=== PATIENT | male | born 1955 | race Caucasian/White ===

== ENCOUNTER 2019-06-07 13:39 | Inpatient (IN) | payer BC, SELFPAY ==
[2019-06-07] VITALS (14 sets, daily range): BP systolic 134–187; BP diastolic 79–120; PULSE 62–78; RESP 15–97; TEMP 36.4–36.8; O2SAT 96–99; BMI 27.3
--- NOTE | 2019-06-07 13:43 | ECG_ITS ---
Measurements Intervals [place] Rate: 66 P: 54 OK: 172 QRS: 0 QRSD: 92 T: 20 QT: 385 QTc: 405 Interpretive Statements SINUS RHYTHM RSR' IN V1 OR V2, CONSIDER RIGHT VENTRICULAR HYPERTROPHY OR RIGHT VCD ANTEROLATERAL ST ELEVATION- PROBABLY EARLY REPOLARIZATION INFERIOR ST ELEVATION MYOCARDIAL INFARCT- ACUTE ABNORMAL ECG Electronically Signed On 06-07-2019 14:30:21 CDT by Duarte Jones D.O.
--- NOTE | 2019-06-07 13:56 | PC.NURSE ---
Stemi called vrbo to give pt 243 of aspirin
[2019-06-07 14:00] LABS: Basophils Absolute Auto 0.1 K/mm3 (0.0-0.1); Basophils Percent Auto 0.2 % (0.2-1.2); Eosinophils Absolute Auto 0.2 K/mm3 (0-0.3); Eosinophils Percent Auto 0.7 % (0-4.4); Hematocrit 45.9 % (42.0-52.0); Hemoglobin 15.5 g/dL (14.0-18.0); Immature Granulocyte Absolute 0.05 K/mm3 (0.00-0.031); Immature Granulocyte Percent A 0.2 % (0-0.5); Lymphocytes Absolute Auto 25.22 K/mm3 (0.9-3.2); Lymphocytes Percent Auto 77.8 % (18.3-44.2); Mean Corpuscular HGB Conc 33.8 g/dl (32-36); Mean Corpuscular Volume 88.8 fl (80-100); Mean Platelet Volume 9.4 fl (7.4-10.4); Monocytes Absolute Auto 0.7 K/mm3 (0.1-0.6); Monocytes Percent Auto 2.3 % (2.6-8.5); Neutrophils Absolute Auto 6.1 K/mm3 (1.3-6.7); Neutrophils Percent Auto 18.8 % (45.5-73.1); Platelet Count Result 217 k/mm3 (150-375); Red Blood Count 5.17 M/mm3 (4.6-6.20); Red Cell Distribution Width 12.1 % (11.5-14.5); White Blood Count 32.4 K/mm3 (4.5-10.0)
--- NOTE | 2019-06-07 14:02 | PC.NURSE ---
rajat to give heparin 0.8 ml brillinta 180 mg
--- NOTE | 2019-06-07 14:04 | ED.CHESTPAIN ---
HPI - Chest Pain General Chief Complaint: Chest Pain Stated Complaint: chest tightness x4d Time Seen by Provider: 06/07/19 13:42 History of Present Illness HPI narrative: Patient is a 63-year-old male who presents the ER with chest pain. Began 4 days ago while out on a walk. Pain has waxed and waned in intensity since then. At the worst is 4/10 and is currently 2/10. No modifying factors. Feels like symptoms are worse at night. Symptoms start left shoulder blade and move into the central chest. No diaphoresis/shortness of breath. Patient also denies any sort of infectious symptoms such as runny nose/sore throat/productive cough/fever. Related Data Home Medications Medication Instructions Recorded Confirmed amlodipine 06/07/19 aspirin 81 mg PO DAILY 06/07/19 06/07/19 fluocinonide TOPICAL 06/07/19 metoprolol tartrate 06/07/19 Allergies Allergy/AdvReac Type Severity Reaction Status Date / Time No Known Allergies Allergy Verified 06/07/19 13:50 Review of Systems Review of Systems: All systems reviewed & are unremarkable except as noted in HPI and below Constitutional: Constitutional: Denies chills, Denies fever(s) and Denies weakness Cardiovascular: Cardiovascular: Reports chest pain, Denies rapid heart rate and Denies radiating jaw, neck or arm pain Respiratory: Respiratory: Denies cough, Denies dyspnea and Denies wheezing Gastrointestinal: Gastrointestinal: Denies abdominal pain, Denies nausea and Denies vomiting PMFSH Past Medical History Medical History Carotid arterial disease Hypercholesterolemia Hypertension Surgical History Surgical History H/O carotid endarterectomy H/O carotid endarterectomy Family History Family History Unknown No problems noted. Social History Social History Social History: Non-smoker Smoking status: Never smoker Alcohol intake: current Drinks per week: 24 Substance use: never Gender identity (if verbalized by the patient): Male Spiritual care concerns: No Agree to blood products: Yes Exam Narrative: Exam Narrative: GENERAL: Well-appearing, well-nourished, and in no acute distress. HEAD: Normocephalic, atraumatic. EYES: PERRL and EOMI. ENT: Mucous membranes moist. CHEST: Clear to auscultation. No respiratory distress. HEART: Regular rate and rhythm. No murmur heard. Normal peripheral pulses. ABDOMEN: Soft, nontender, nondistended. EXTREMITIES: Normal range of motion. No edema. SKIN: Warm, dry, no rash. NEURO: Alert and oriented x3. Course Course Emergency Course: STEMI activated, spoke with Dr. Davis. Pt will get ASA, brilinta, and heparin. Off to farm labor contractor. Vital Signs Vital signs: Vital Signs Temperature 97.6 F 06/07/19 13:43 Pulse Rate 70 06/07/19 13:43 Respiratory Rate 18 06/07/19 13:43 Blood Pressure 172/106 H 06/07/19 13:43 Pulse Oximetry 99 06/07/19 13:43 Temperature 97.6 F 06/07/19 13:43 Pulse Rate 74 06/07/19 14:00 Respiratory Rate 18 06/07/19 14:00 Blood Pressure 168/109 H 06/07/19 14:11 Pulse Oximetry 99 06/07/19 13:43 MDM - Chest Pain Lab Data Result diagrams: 06/07/19 13:53 06/07/19 13:53 Labs: Lab Results 06/07/19 06/07/19 06/07/19 Range/Units 13:53 13:53 13:53 WBC 32.4 H (4.5-10.0) K/mm3 RBC 5.17 (4.6-6.20) M/mm3 Hgb 15.5 (14.0-18.0) g/dL Hct 45.9 (42.0-52.0) % MCV 88.8 (80-100) fl MCH 30.0 (26-34) pg MCHC 33.8 (32-36) g/dl RDW 12.1 (11.5-14.5) % Plt Count 217 (150-375) k/mm3 MPV 9.4 (7.4-10.4) fl Immature Gran % (Auto) 0.2 (0-0.5) % Neut % (Auto) 18.8 L (45.5-73.1) % Lymph % (Auto) 77.8 H (18.3-44.2) % [place] % (Auto) 2.3 L (2.6-8.5) % Eos
[2019-06-07] MEDS: ASPIRIN 81 MG CHEWABLE TABLET 324 MG PO (14:09)
[2019-06-07] MEDS: TICAGRELOR 90 MG TABLET 180 MG (14:09)
[2019-06-07 14:12] LABS: Blood Urea Nitrogen 16 mg/dL (9-20); Carbon Dioxide 27 mmol/L (22-30); Chloride 103 mmol/L (98-107); Estimated CRCL calculation 84 ml/min; Estimated Glomerular Filt Rate > 60; Glucose 114 mg/dL (75-110); Potassium 4.1 mmol/L (3.4-5.0); Sodium 138 mmol/L (137-145)
[2019-06-07 14:13] LABS: Platelet Estimate Adequate (Adequate)
[2019-06-07 14:14] LABS: Atypical Lymphocytes Present; INR 0.9; Prothrombin Time 12.1 Seconds (11.1-14.7); Smudge Cells PRESENT
[2019-06-07 14:15] LABS: Partial Thromboplastin Time 24.4 SECONDS (22.3-36.8)
--- NOTE | 2019-06-07 14:20 | PM.IMHP ---
H&P: HPI History of Present Illness Chief complaint: stemi Narrative: Date of service: 06/07/2019 Bipin Artis is a 63 year old male with a past medical history significant for hypertension, dyslipidemia, carotid arterial disease status post right carotid endarterectomy 2015, prior TIA followed by Dr. Cunningham at [facility] who states he was in his usual state of health when approximately 3 days ago he began to experience left upper discomfort described as a pressure /aching sensation radiating to his chest. Symptoms were worsened with activity and rather uncomfortable. They have been waxing and waning in intensity but more less constant the past few days and given persistence and his history of carotid arterial disease he became concerned and presented to the emergency department. In the ER it was noted he had ST elevations in lead I, II, III, aVF concerning for STEMI for which the ER activated the STEMI team and notified Dr. Davis who agreed to take the patient to the general production laborer. He denies diaphoresis, significant SOB although possibly slight, no nausea, fevers, chills, cough or recent illness or sick contacts. He notes he does not feel all that bad currently but admits to the persistence of chest and back discomfort. No prior h/o CAD/NM, CHF, DVT/PE, or bleeding complications. No edema, orthopnea, PND, palpitations, near syncope/syncope, FORDE, focal weakness, trauma or falls. he has been compliant with ASA but is not on a statin. Dr. Davis has been contacted and the pt will be taken to the cardiac general production laborer on an emergent basis. Incidentally, WBC markedly elevated with lymphocytic predominance. Review of Systems Review of Systems: All systems reviewed & are unremarkable except as noted in HPI and below Constitutional: Constitutional: Reports as per HPI, Reports no additional constitutional complaints, Denies body ache(s), Denies chills, Reports difficulty sleeping and Reports fatigue Eyes: Eyes: Reports as per HPI and Reports no additional eye complaints ENT: Reports system reviewed and no additional complaints, except as documented, Reports as per HPI, Denies dysphagia, Denies epistaxis, Denies nasal congestion and Denies nasal discharge Cardiovascular: Cardiovascular: Reports as per HPI, Reports no additional cardiovascular complaints, Reports chest pain, Denies diaphoresis, Denies leg edema, Denies lightheadedness and Denies palpitations Respiratory: Respiratory: Reports as per HPI, Reports no additional respiratory complaints, Denies cough, Denies hemoptysis and Reports dyspnea Gastrointestinal: Gastrointestinal: Reports as per HPI, Reports no additional gastrointestinal complaints, Denies abdominal pain, Denies melena, Denies hematochezia, Denies nausea, Denies vomiting and Denies hematemesis Genitourinary: Genitourinary: Reports no additional male genitourinary complaints, Reports as per HPI, Denies hematuria and Denies dysuria Musculoskeletal: Musculoskeletal: Reports no additional musculoskeletal complaints, Reports as per HPI, Reports back pain, Denies myalgias, Denies arthralgias and Denies neck pain Integumentary/Breasts: Skin/Breast: Reports system reviewed and no additional complaints, except as docu, Reports as per HPI and Denies rash Neurologic: Reports system reviewed and no additional complaints, except as documented, Reports as per HPI, Denies Abnormal speech present, Denies abnormal gait, Denies confusion and Denies headache(s) Psychiatric: Psychiatric: Reports no additional psychiatric complaints, Reports as per HPI, Denies anxiety, Denies behavioral changes and Denies confusion Endocrine: Endocrine: Reports no additional endocrine complaints, Reports as per HPI, Denies cold intolerance, Denies excessive sweating, Reports fatigue and Denies heat intolerance Hematologic/Lymphatic: Hematologic/Lymphatic: Reports no additional hematologic/lymphatic complaints, Reports as per HPI, Denies easy bleeding and Denies easy bruising Allergic/Immun
--- NOTE | 2019-06-07 15:15 | WPDCARDPROC ---
Cardiac Cath Procedure Note Date of procedure:: 06/07/19 Performing physician:: Nathanael Davis MD Indication:: acute coronary syndrome -inferior ST-elevation AR Procedure Procedure note:: EMERGENT CARDIAC CATHETERIZATION AND PERCUTANEOUS CORONARY INTERVENTION REPORT DATE OF PROCEDURE: 06/07/2019 INDICATION FOR PROCEDURE: Acute coronary syndrome -inferior ST-elevation myocardial infarction BRIEF CLINICAL HISTORY: 63-year-old male with past medical history of hypertension came to [facility] emergency room with complaints of chest discomfort for about 4 days. His EKG in the ER showed sinus rhythm, ST segment elevation in the inferior leads with subtle ST depression in the septal leads. Cardiac catheterization lab was activated for primary PCI. PROCEDURES PERFORMED: 1. Left heart catheterization- Selective left and right coronary angiogram; left ventriculogram and hemodynamic assessment 2. Percutaneous coronary intervention- Balloon angioplasty and stenting of subtotal occlusion in the proximal RCA using a 3.5 x 13 mm Biotronik sirolimus eluting stent with good angiographic results. 3. Selective right common femoral angiogram and deployment of Angio-Seal hemostatic device 4. Moderate sedation-CPT code 77782 MODERATE SEDATION: Midazolam 1 mg; fentanyl 25 mcg. Start time 1447 , Stop time 1503 ; Total [id number] time 16; RN was trained observer for moderate sedation. ACCESS SITE: Right common femoral artery PROCEDURE NOTE: After obtaining informed consent, patient was Emergently brought to catheterization lab and prepped and draped in a usual sterile manner. After local anesthesia with lidocaine, right common femoral artery access was taken with micropuncture needle followed by insertion of a 6 Malaysian sheath. Selective left and right coronary angiogram was performed using 5 Malaysian JL4 and 6 Malaysian JR4 guide catheters respectively. Orthogonal views were taken. after completion of primary PCI, 5 Malaysian pigtail catheter was advanced in the LV cavity and was flushed with normal saline. LV pressure measurement was performed. After this, left ventriculogram was performed. The catheter was flushed again, and gradient across the aortic valve was measured on the pullback of the catheter. Selective right common femoral angiogram was performed after PCI followed by successful deployment of Angio-Seal vascular closure device. Patient tolerated procedure well without any immediate procedure related complications. FINDINGS: LEFT MAIN CORONARY: the left main coronary artery is a medium-sized, very short vessel without angiographically significant focal stenosis. LEFT ANTERIOR DESCENDING ARTERY: The LAD is a medium-size vessel, tapers distally And reaches the apical apex. There is diffuse 30-40% stenosis in the proximal-mid segment. Major diagonal branch is a small to medium-sized vessel With mild diffuse disease. LEFT CIRCUMFLEX ARTERY: The left circumflex artery is a large size vessel, gives multiple tortuous OM branches with significant overlap. No significant focal stenosis seen. RIGHT CORONARY ARTERY: The RCA is a medium to large size , codominant Vessel. there is high-grade, subtotal 99% stenosis in the proximal segment. PDA is a small to medium caliber vessel, and PL branch is a small-caliber vessel. LEFT VENTRICULOGRAM: Overall LV systolic function is preserved with mild inferior wall hypokinesis; ejection fraction 60-65%. LVEDP 18 mmHg. HEMODYNAMIC ASSESSMENT: Opening pressure 125/81 , closing pressure 144/76 mmHg , LVEDP mmHg; no significant gradient across aortic valve on the pullback of pigtail catheter. RIGHT COMMON FEMORAL ARTERY: Patent INTERVENTION REPORT: Patient's coronary angiogram showed subtotal 99% stenosis in the proximal [id number] vessel. He had already received aspirin and loading dose of ticagrelor 180 mg in the emergency room. Bivalirudin was used for procedural anticoagul
--- NOTE | 2019-06-07 16:50 | ADMGEN ---
This patient, Bipin Artis, was admitted to Intensive Care Unit-6. Patient/family oriented to hospital policies and general routines including ID bracelet, bed and alarms, visiting hours, pain management, procedures, bathroom and other care routines, personal items, smoking policy, room service/diet, and visiting hours. Valuables list has been completed. Information on how to activate the Rapid Response Team has been discussed. Patient/Family are encouraged to report perceived risks to care and to ask questions if they do not understand what they are told or what they should do.
[2019-06-07] MEDS: SODIUM CHLORIDE 0.9% IV 1,000 ML 125 ML IV CONT (16:54)
[2019-06-07] MEDS: TICAGRELOR 90 MG TABLET PO (20:56)
[2019-06-07] MEDS: METOPROLOL TARTRATE 12.5 MG TABLET PO (20:56)
[2019-06-08] VITALS (19 sets, daily range): BP systolic 124–149; BP diastolic 80–94; PULSE 60–85; RESP 12–18; TEMP 36.3–37; O2SAT 97–100
[2019-06-08 08:03] LABS: Hematocrit 44.7 % (42.0-52.0); Hemoglobin 14.5 g/dL (14.0-18.0); Mean Corpuscular HGB Conc 32.4 g/dl (32-36); Mean Corpuscular Hemoglobin 29.8 pg (26-34); Mean Corpuscular Volume 91.8 fl (80-100); Mean Platelet Volume 9.7 fl (7.4-10.4); Platelet Count Result 183 k/mm3 (150-375); Red Blood Count 4.87 M/mm3 (4.6-6.20); Red Cell Distribution Width 12.5 % (11.5-14.5); White Blood Count 26.3 K/mm3 (4.5-10.0)
[2019-06-08] MEDS: METOPROLOL TARTRATE 12.5 MG TABLET PO ×2 (08:04→20:34)
[2019-06-08] MEDS: TICAGRELOR 90 MG TABLET PO ×2 (08:04→20:35)
[2019-06-08] MEDS: lisinopriL 5 MG TABLET PO (08:04)
[2019-06-08] MEDS: ASPIRIN 81 MG ENTERIC TABLET PO (08:05)
[2019-06-08] MEDS: ATORVASTATIN 40 MG TABLET 80 MG PO (08:05)
[2019-06-08 08:08] LABS: Lymphocytes Absolute Manual 21.56 K/mm3 (1.1-4.5); Monocytes Absolute Manual 0.52 K/mm3 (0.1-0.90); Monocytes Percent Manual 2 % (3-9); Neutrophils Percent Manual 16 % (46-73); Platelet Estimate Adequate (Adequate); Total Cells Counted 100
[2019-06-08 08:09] LABS: Atypical Lymphocytes Present
[2019-06-08 08:10] LABS: Smudge Cells FEW
[2019-06-08 08:15] LABS: Blood Urea Nitrogen 14 mg/dL (9-20); Calcium 8.8 mg/dL (8.4-10.2); Carbon Dioxide 28 mmol/L (22-30); Chloride 105 mmol/L (98-107); Estimated CRCL calculation 84 ml/min; Estimated Glomerular Filt Rate > 60; Glucose 115 mg/dL (75-110); Magnesium 2.3 mg/dL (1.6-2.3); Phosphorus 3.4 mg/dL (2.5-4.5); Potassium 4.4 mmol/L (3.4-5.0); Sodium 138 mmol/L (137-145)
--- NOTE | 2019-06-08 11:05 | WPDCNINT ---
Assessment and Plan Assessment and plan (1) STEMI (ST elevation myocardial infarction): Code(s): I21.3 - ST elevation (STEMI) myocardial infarction of unspecified site Status: Acute Assessment and Plan: patient presented with chest pain, EKG in the ED showed acute inferior myocardial injury. Patient status post PTCA / PCI with TIM x1 to proximal RCA. EF 60-65% with mild inferior wall hypokinesia - cardiology following the patient closely - continue aspirin, Brilinta, atorvastatin, metoprolol, lisinopril (2) Chronic leukemia: Code(s): C95.10 - Chronic leukemia of unspecified cell type not having achieved remission Status: Acute Assessment and Plan: patient has a history of chronic leukemia - WBC count on admission was 34,000, this morning is 26,000. (3) Hypertension: Code(s): I10 - Essential (primary) hypertension Status: Acute Assessment and Plan: history of essential hypertension on lisinopril and metoprolol (4) Dyslipidemia: Code(s): E78.5 - Hyperlipidemia, unspecified Status: Acute Assessment and Plan: continue atorvastatin (5) H/O carotid endarterectomy: Code(s): Z98.890 - Other specified postprocedural states Status: Acute Assessment and Plan: h/o R CEA per patient, followed by Dr. Cunningham at [facility]. Pt reports h/o TIA prior to CEA in 2014 prompting referral and diagnosis. (6) Suspected 2019 novel coronavirus infection: Code(s): R68.89 - Other general symptoms and signs Status: Acute Assessment and Plan: given patient's white blood cell count was elevated in the ED patient was swabbed for SARS-COV-2 PCR, which is pending. Additional Plan Discussed with patient updated with his condition and plan of care. I answered his questions code status: Full code Critical care time spent: 41 minutes Due to a high probability of clinically significant, life threatening deterioration, the patient required my highest level of preparedness to intervene emergently and I personally spent this critical care time directly and personally managing the patient. This critical care time included obtaining a history; examining the patient; pulse oximetry; ordering and review of studies; arranging urgent treatment with development of a management plan; evaluation of patient's response to treatment; frequent reassessment; and discussions with other providers. It was exclusive of separately billable procedures and treating other patients and teaching time. Please see Assessment and Plan section and the rest of the note for further information on patient assessment and treatment Foundry Engineer Consult Note Consult date: 06/08/19 Time Seen: 06:58 Reason for consult: STEMI, status post PTCA/PCI with TIM x1 to proximal RCA. HPI: Bipin Artis is a 63 year old male With significant past medical history of chronic leukemia, carotid artery disease, hypercholesterolemia, hypertension presented to the ED with complains of chest pain that began on 06/03/2019 while he was out walking. The pain has been intermittent, pressures/aching sensation. Symptoms worsen with activity pain initially had been waxing and waning but recently is more or less constant for the cup os couple of days, patient was concerned and presented to the ED we was found to have ST elevations in leads I, II,II AVF. Patient denies any diaphoresis, shortness of breath, lightheadedness, nausea, fevers, chills, cough. No exposure to recent illness or sick contacts. No no EF was 60-65% with LVEDP of 18 mmHg. recent travel was noted. Patient was taken to the cardiac labor contract analyst for acute inferior myocardial injury status post PTCA/PCI with TIM x1 to proximal RCA. LV gram with mild inferior wall hypokinesis. [place] [id number] on admission, he was swabbed for SARS-COV-2 PCR for COVID-19. Patient was transferred to the ICU post procedure fo
[2019-06-08 11:49] LABS: SARS-CoV-2 RNA PCR Negative
--- NOTE | 2019-06-08 13:06 | PM.PNCARD ---
Progress Note: A&P Assessment and Plan (1) STEMI (ST elevation myocardial infarction): Code(s): I21.3 - ST elevation (STEMI) myocardial infarction of unspecified site Status: Acute Assessment and Plan: Subtotal proximal RCA occlusion status post 3.5 x 13 mm Biotronik sirolimus eluting stent without complications. Residual diffuse 30-40% stenosis in proximal to mid segment of LAD mild diffuse disease in diagonal branch. Circumflex large vessel without significant stenosis. EF 60-65% with mild inferior hypokinesis. - 2D Echocardiogram - Doing well post intervention. Continue dual antiplatelet therapy with aspirin 81mg daily and ticagrelor 90mg BID x 12 months without interruption, high dose statin, beta-mely, and lisinopril. Blood pressure reasonably controlled. - COVID-19 result negative. May discontinue isolation. - Transfer to [facility] today. - Spent a great deal of time discussing his significant increased risk for complications if he were to contract COVID-19 and the importance of following CDC guidelines and taking every reasonable precaution. Specifically, advised patient alternative arrangements for watching their grandchildren as there [id number] works in a [employer] placing patient at high risk of infection. All questions answered to his satisfaction. - Spent a great deal time also discussing post myocardial infarction precautions with regards to right femoral arterial access and avoidance of anything more than low impact walking, any sexual activity, heavy lifting and or mowing the lawn for least 2 weeks. Post catheterization in vt precautions with regards to arterial access site discussed and will be once again reviewed prior to discharge. (2) Hypertension: Code(s): I10 - Essential (primary) hypertension Status: Acute Assessment and Plan: Fair BP control. Continue current medical therapy. (3) Dyslipidemia: Code(s): E78.5 - Hyperlipidemia, unspecified Status: Acute Assessment and Plan: Continue Atorvastatin 80 mg at bedtime. Check lipid panel (4) Carotid arterial disease: Code(s): I77.9 - Disorder of arteries and arterioles, unspecified Status: Acute Assessment and Plan: h/o R CEA per pt account followed by Dr. Cunningham at [facility]. Pt reports h/o TIA prior to CEA in 2014 prompting referral and diagnosis. (5) H/O carotid endarterectomy: Code(s): Z98.890 - Other specified postprocedural states Status: Acute Assessment and Plan: as above, R side 2014. (6) Leukocytosis: Code(s): D72.829 - Elevated white blood cell count, unspecified Status: Acute Assessment and Plan: Patient reports history of chronic leukemia who has regular follow up as an outpatient. Subjective Date/time seen: Date of service: 06/08/19 11:06 Follow-up for inferior ST-elevation myocardial infarction Patient feeling well. Denies chest pain or shortness of breath. Had 5 beat nonsustained VT overnight, otherwise no new issues. denies palpitations, bleeding. No significant right groin pain. Patient remains on isolation for COVID-19 rule out. COVID-19 returned negative. Denies fevers, chills, shortness of breath, cough. Review of Systems Review of Systems: All systems reviewed & are unremarkable except as noted in HPI and below Constitutional: Constitutional: Reports as per HPI, Reports no additional constitutional complaints, Denies body ache(s), Denies chills, Denies difficulty sleeping, Denies excessive sweating, Denies fatigue, Denies headache(s) and Denies weakness Eyes: Eyes: Reports as per HPI and Reports no additional eye complaints ENT: Reports system reviewed and no additional complaints, except as documented, Reports as per HPI, Denies dysphagia, Denies headache(s), Denies epistaxis, Denies nasal congestion, Denies nasal discharge and Denies neck pain Cardiovascular: Cardiovascular: Reports as p
--- NOTE | 2019-06-08 13:17 | ECHO_ITS ---
Patient Info Name: Bipin Artis Age: 63 years : 1955 Gender: Male Ht: 73 in Wt: 203 lbs BSA: 2.19 m2 BP: 139 / 91 mmHg Heart Rhythm: Sinus Rhythm Technical Quality: Good Exam Date: 06/08/2019 1:52 PM Exam Location: [facility] Patient Status: Inpatient Admit Date: 06/07/2019 Staff Ordering Physician: Demetris Jerez MD Utilization Management Manager: Jose Dunaway, DUY, RT Attending Provider: Nathanael Davis MD Referring Physician: Meri WATSON; Exam Type: CA echo doppler color flow Study Info Indications I21.3 - ST elevation (STEMI) myocardial infarction of unspecified site Complete two-dimensional, color flow and Doppler transthoracic echocardiogram is performed with contrast to opacify the left ventrical and to improve the deliniation of the left ventrical endocarial boarders. Summary 1. Left ventricular systolic function is normal, estimated at 65-70%. 2. There is mildly increased left ventricular wall thickness. 3. The left ventricular diastolic function is grade II diastolic dysfunction. 4. Mild mid inferior wall hypokinesis. 5. There is no aortic valve stenosis. 6. Mild focal calcification of the noncoronary cusp. 7. There is trace mitral valve regurgitation. 8. There is trace tricuspid valve regurgitation. 9. Unable to estimate PA systolic pressure due to poor spectral resolution of tricuspid regurgitant jet velocity. Left Ventricle Left ventricular chamber dimension is normal. Left ventricular systolic function is normal, estimated at 65-70%. There is mildly increased left ventricular wall thickness. The left ventricular diastolic function is grade II diastolic dysfunction. Mild mid inferior wall hypokinesis. Right Ventricle Right ventricular chamber dimension is normal. Right ventricular systolic function is normal. Left Atria Left atrial chamber dimension is normal. Right Atria Right atrial chamber dimension is normal. Aortic Valve The aortic valve is trileaflet. There is no aortic valve stenosis. There is no aortic valve regurgitation. Mild focal calcification of the noncoronary cusp. Pulmonic Valve The pulmonic valve is not well visualized. There is mild pulmonic regurgitation. Mitral Valve The mitral valve has thickened leaflets. There is trace mitral valve regurgitation. Tricuspid Valve The tricuspid valve leaflets are normal. There is trace tricuspid valve regurgitation. Unable to estimate PA systolic pressure due to poor spectral resolution of tricuspid regurgitant jet velocity. Pericardium/Pleural The pericardium appears normal. There is no pericardial effusion. Inferior Vena Cava Normal inferior vena cava with >50% collapse upon inspiration consistent with normal right atrial pressure, 5 mmHg. Aorta The aortic root size at the sinus of Valsalva is normal. There is mild aortic atherosclerosis. Left Ventricular Outflow Tract Name Value Normal LVOT 2D LVOT Diameter 2.0 cm LVOT Doppler LVOT Peak Gradient 4 mmHg LVOT Mean Gradient 2 mmHg LVOT VTI 18 cm
[2019-06-08] MEDS: PERFLUTREN LIPID MICROSPHERES 1.5 ML VIAL DILUTED TO 10 ML TOTAL VOLUME IV PUSH (14:35)
--- NOTE | 2019-06-08 15:04 | PC.NURSE ---
This patient, Bipin Artis, was received from ICU-6 on 06/08/19 at 1504. Personal belongings list checked and signed. Patient/family oriented to unit policies and routines
[2019-06-09] VITALS (7 sets, daily range): BP systolic 125–131; BP diastolic 83–84; PULSE 57–94; RESP 14–18; TEMP 35.8–36.2; O2SAT 99
[2019-06-09 04:40] LABS: Cholesterol 180 mg/dL (0-200); HDL Direct 31 mg/dL; Triglycerides 129 mg/dL (<150)
[2019-06-09 04:50] LABS: LDL Cholesterol Direct 131 mg/dL
[2019-06-09] MEDS: METOPROLOL TARTRATE 12.5 MG TABLET PO (08:34)
[2019-06-09] MEDS: ATORVASTATIN 40 MG TABLET 80 MG PO (08:34)
[2019-06-09] MEDS: ASPIRIN 81 MG ENTERIC TABLET PO (08:34)
[2019-06-09] MEDS: TICAGRELOR 90 MG TABLET PO (08:34)
[2019-06-09] MEDS: lisinopriL 5 MG TABLET PO (08:34)
--- NOTE | 2019-06-09 09:59 | PM.DS ---
DS: Diagnosis Admitting Diagnosis Admitting Diagnosis: ST elevation (STEMI) myocardial infarction of unspecified site Discharge Diagnosis (1) STEMI (ST elevation myocardial infarction): Qualifiers: Involved coronary artery: right coronary artery Qualified Code(s): I21.11 - ST elevation (STEMI) myocardial infarction involving right coronary artery Code(s): I21.3 - ST elevation (STEMI) myocardial infarction of unspecified site Status: Acute Assessment and Plan: Subtotal proximal RCA occlusion status post 3.5 x 13 mm Biotronik sirolimus eluting stent without complications. Residual diffuse 30-40% stenosis in proximal to mid segment of LAD mild diffuse disease in diagonal branch. Circumflex large vessel without significant stenosis. EF 60-65% with mild inferior hypokinesis. Echo 06/08/2019: Left ventricular systolic function is normal, estimated at 65-70%. There is mildly increased left ventricular wall thickness. The left ventricular diastolic function is grade II diastolic dysfunction. Mild mid inferior wall hypokinesis. There is no aortic valve stenosis. Mild focal calcification of the noncoronary cusp. There is trace mitral valve regurgitation. There is trace tricuspid valve regurgitation. Unable to estimate PA systolic pressure due to poor spectral resolution of tricuspid regurgitant jet velocity. Continue dual antiplatelet therapy with aspirin 81mg daily and ticagrelor 90mg q.12 hours x 12 months without interruption, high dose statin, beta-mely, and lisinopril. Blood pressure reasonably controlled. COVID-19 result negative. (2) Hypertension: Qualifiers: Hypertension type: essential hypertension Qualified Code(s): I10 - Essential (primary) hypertension Code(s): I10 - Essential (primary) hypertension Status: Acute Assessment and Plan: Fair BP control. Continue current medical therapy. (3) Dyslipidemia: Code(s): E78.5 - Hyperlipidemia, unspecified Status: Acute Assessment and Plan: Continue Atorvastatin 80 mg at bedtime. Check lipid panel (4) Carotid arterial disease: Qualifiers: Carotid artery disease type: stenosis Laterality: right Qualified Code(s): I65.21 - Occlusion and stenosis of right carotid artery Code(s): I77.9 - Disorder of arteries and arterioles, unspecified Status: Acute Assessment and Plan: h/o R CEA per his account followed by Dr. Cunningham at [facility]. He reports h/o TIA prior to CEA in 2014 prompting referral and diagnosis. (5) H/O carotid endarterectomy: Code(s): Z98.890 - Other specified postprocedural states Status: Acute Assessment and Plan: as above, R side 2014 (6) Leukocytosis: Qualifiers: Leukocytosis type: unspecified Qualified Code(s): D72.829 - Elevated white blood cell count, unspecified Code(s): D72.829 - Elevated white blood cell count, unspecified Status: Acute Assessment and Plan: History of chronic leukemia with regular follow up as an outpatient . DS: Summary Hospital Course Reason for hospitalization: Chest pain Hospital Course: 63 year old male with a past medical history significant for hypertension, dyslipidemia, carotid arterial disease status post right carotid endarterectomy 2014, prior TIA that presented to the emergency room with 3 day history waxing and waning chest discomfort. Given its persistence and his history of carotid arterial disease he became concerned and presented to the emergency department. In the ER it was noted he had ST elevations in lead I, II, III, aVF concerning for STEMI for which the ER activated the STEMI team. He was taken emergently to the flower shop laborer/designer by Dr Davis with findings of: Severe single-vessel CAD -99% stenosis proximal RCA (
== END 2019-06-09 10:51 | disposition home or self-care (01) | DRG 247 ==
LOC: ANHED 14:02 → ANHICU 15:58 → ANHIMU 06-09 03:06 → ANHICU 06-12 09:46 → ANHIMU 06-12 09:46
PROVIDERS: Internal Medicine; Internal Medicine Cardiovascular Disease; Admitting Provider Internal Medicine Cardiovascular Disease; Emergency Provider Emergency Medicine; Visit Provider Specialist
PROC: 4A023N7 Measurement of Cardiac Sampling and Pressure, Left Heart, Percutaneous Approach (ICD-10-PCS; CPT 93452; principal; 2019-06-07 14:30)
PROC: 027034Z Dilation of Coronary Artery, One Artery with Drug-eluting Intraluminal Device, Percutaneous Approach (ICD-10-PCS; 2019-06-07 14:30)
PROC: 027034Z Dilation of Coronary Artery, One Artery with Drug-eluting Intraluminal Device, Percutaneous Approach (ICD-10-PCS; 2019-06-07 14:30)
DX: I21.11 ST elevation (STEMI) myocardial infarction involving right coronary artery (principal); I47.2 Ventricular tachycardia; C95.10 Chronic leukemia of unspecified cell type not having achieved remission; I10 Essential (primary) hypertension; E78.5 Hyperlipidemia, unspecified; Z86.73 Personal history of transient ischemic attack (TIA), and cerebral infarction without residual deficits; E78.00 Pure hypercholesterolemia, unspecified; Z20.828 Contact with and (suspected) exposure to other viral communicable diseases
CPT/HCPCS: 36415; 80048; 80061; 83735; 84100; 84484; 85025; 85610; 85730; 87635; 93005; 93306; 93458; 99291; A9270; C1725; C1760; C1769; C1874; C1887; C1894; C8929; C9606; G0269; J1644; J2250; J3010; J7030; Q9957; U0003

== ENCOUNTER → 2020-08-15 12:26 | Outpatient (CLI) | payer BC, SELFPAY ==
--- NOTE | ~2020-08-15 | MR_ITS ---
EXAMINATION: MR shoulder RT wo con DATE: 08/15/2020 12:59 INDICATION: Right shoulder pain. TECHNIQUE: Magnetic resonance imaging (MRI) of the right shoulder was performed without intravenous c ontrast. Sequences included axial PD-weighted FS FSE, coronal oblique PD-weighted FS FSE and T2-weigh yi FS FSE, and sagittal oblique T2-weighted FS FSE and T1-weighted FSE. COMPARISON: None. FINDINGS: Coracoacromial arch: The acromion undersurface is flat in morphology (type I). There is severe acromioclavicular joint ost eoarthritis. There is severe subacromial/subdeltoid bursitis. Rotator cuff: There is a full-thickness tear of supraspinatus and infraspinatus tendons measuring 4.5 cm anterior t o posterior by 6.2 cm proximal to distal. The infraspinatus tear extends into the myotendinous juncti on. Teres minor tendon is normal. There is mild edema at the myotendinous junction of teres minor, co nsistent with mild strain. There is severe subscapularis tendinopathy. There is volume loss and moder ate fatty atrophy of supraspinatus muscle belly. Biceps tendon and glenoid labrum: Biceps tendon is in bicipital groove. There is moderate intra-articular biceps tendinopathy. There is extensive tearing of the glenoid labrum. Fluid: There is a large glenohumeral joint effusion. Bones/cartilage: There is cartilage surface irregularity of glenoid and humeral head. IMPRESSION: 1. Massive full-thickness rotator cuff tear. 2. Moderate intra-articular biceps tendinopathy. 3. Mild glenohumeral joint chondrosis. 4. Severe acromioclavicular joint osteoarthritis. 5. Large glenohumeral joint effusion and severe subacromial/subdeltoid bursitis. Reviewed, dictated and finalized at location A. IMPRESSION: 1. Massive full-thickness rotator cuff tear. 2. Moderate intra-articular biceps tendinopathy. 3. Mild glenohumeral joint chondrosis. 4. Severe acromioclavicular joint osteoarthritis. 5. Large glenohumeral joint effusion and severe subacromial/subdeltoid bursitis .
== END ==
DX: M75.21 Bicipital tendinitis, right shoulder (principal); S46.011A Strain of muscle(s) and tendon(s) of the rotator cuff of right shoulder, initial encounter; X58.XXXA Exposure to other specified factors, initial encounter; M19.011 Primary osteoarthritis, right shoulder
CPT/HCPCS: 73221

== ENCOUNTER → 2021-11-18 10:02 | Outpatient (CLI) | payer MEDICARE, BC, SELFPAY ==
--- NOTE | ~2021-11-18 | MR_ITS ---
EXAMINATION: MR elbow RT wo con DATE: 11/18/2021 10:46 INDICATION: Right elbow tendinitis with couple weeks of posterior right elbow pain and swelling TECHNIQUE: Magnetic resonance imaging (MRI) of the right elbow was performed without intravenous cont rast. Sequences included coronal, axial, and sagittal PD-weighted FS FSE and coronal, axial, and sagi ttal PD-weighted FSE. COMPARISON: None FINDINGS: Osseous/other: Normal alignment. Normal marrow signal with no marrow edema, fracture, osteochondral lesion or patho logic marrow replacing process. Mild osteoarthritis at the right elbow with regions of mild partial-t hickness cartilage loss with smooth chondral surface, tiny marginal osteophytes and no degenerative s ubchondral changes. There is soft tissue swelling and increased fluid signal posterior to the tip the olecranon consistent with olecranon bursitis. Tendons: Mild tendinopathy without discrete tear at the distal triceps tendon with small enthesophyte at its o lecranon attachment. Additional mild tendinopathy of the distal biceps brachii tendon and minimal ten dinopathy at the distal tendon, both without discrete tear. Mild tendinopathy without discrete tear at the medial epicondylar origin of the common flexor tendon wad. Mild tendinopathy without discrete tear at the lateral epicondylar origin of the common extensor tendon wad. There are small enthesophyt es at both the medial and lateral epicondyles. Ligaments: The medial lateral ligament complexes normal. There is a mild partial tear at the proximal aspect of the lateral collateral ligament and the lateral ulnar collateral ligament remains normal. Cubital tunnel: Cubital tunnel is unremarkable with normal signal and caliber of the ulnar nerve. Fluid: Physiologic amount of fluid the elbow joint. IMPRESSION: 1. Olecranon bursitis which underlies the marker indicating the region of maximal pain which overlies a small olecranon enthesophyte at the distal insertion of the triceps tendon which demonstrates mild tendinopathy without tear. 2. Mild tendinopathy without discrete tears at age of the distal triceps, biceps brachii and brachial is tendons as well as at the common flexor and extensor tendon wads. 3. Mild partial tear at the proximal aspect of the radial collateral ligament portion of the lateral collateral ligament complex. Reviewed, dictated and finalized at location A. IMPRESSION: 1. Olecranon bursitis which underlies the marker indicating the region of maxim al pain which overlies a small olecranon enthesophyte at the distal insertion o f the triceps tendon which demonstrates mild tendinopathy without tear. 2. Mild tendinopathy without discrete tears at age of the distal triceps, bicep s brachii and brachialis tendons as well as at the common flexor and extensor t endon wads. 3. Mild partial tear at the proximal aspect of the radial collateral ligament p ortion of the lateral collateral ligament complex.
== END ==
DX: M77.8 Other enthesopathies, not elsewhere classified (principal); M70.21 Olecranon bursitis, right elbow
CPT/HCPCS: 73221

== ENCOUNTER 2024-08-31 21:54 | Observation (INO) | payer MEDICARE, BC, SELFPAY ==
--- NOTE | ~2024-08-31 | XR_ITS ---
XR chest 2V Ordering provider: Devan Castellanos MD History: 69 years Male with . CHEST PAIN . Comparison: September 19, 2015 FINDINGS: MEDIASTINUM: The cardiac silhouette is not enlarged. LUNGS: No infiltrates, effusions or pneumothorax. OTHER: No free air under the diaphragm. Degenerative changes of the spine. IMPRESSION: No acute cardiopulmonary pathology. Reviewed, dictated and finalized at location A.
--- NOTE | 2024-08-31 21:55 | ECG_ITS ---
Test Date: 2024-08-31 22:01:03 Measurements Intervals Carver Rate: 71 P: 67 TX: 178 QRS: 47 QRSD: 92 T: 45 QT: 392 QTc: 426 Interpretive Statements SINUS RHYTHM No previous ECG available for comparison Electronically Signed On 09-01-2024 07:08:17 CDT by Shan Burleson M.D.
--- OUTSIDE RECORDS SUMMARY | 2024-08-31 21:56 | XMS_ITS | Clinical Summary ---
Author Organization [facility] [address] [place] [phone] Care Team Providers Care Fund Controller Name Role Phone Octavio Lobo MD Unavailable Juani Jeff DO Primary Care Provider + Allergies No known active allergies Medications nystatin-triamc inolone creamIndication s:cutaneous candidiasis Apply 1 application topically 2 (two) times a day as needed 7 Active aspirin 81 mg chewable tablet Take 1 tablet (81 mg total) by mouth Active clobetasol (CLOBEX) 0.05 % shampooIndicati ons:Scalp Psoriasis Apply 1 application topically 2 (two) times a day as needed 7 Active fluocinonide (LIDEX) 0.05 % cream Apply 1 application topically as needed 0 9 Active ketoconazole (NIZORAL) 2 % cream ketoconazole 2 % topical cream APPLY TO THE AFFECTED AREA(S) BY TOPICAL ROUTE ONCE DAILY Active nitroglycerin (NITROSTAT) 0.4 mg SL tabletIndicatio ns:Stable angina pectoris Place 1 tablet (0.4 mg total) under the tongue every 5 (five) minutes as needed for chest pain 25 tablet 1 3 Active lisinopriL (PRINIVIL,ZESTR IL) 5 mg tablet TAKE 1 TABLET(5 MG) BY MOUTH EVERY MORNING 90 tablet 2 5 Active atorvastatin (LIPITOR) 80 mg tablet TAKE 1 TABLET(80 MG) BY MOUTH DAILY 90 tablet 2 5 Active metoprolol XL (TOPROL-XL) 50 mg extended release tabletIndicatio ns:Stable angina pectoris Take 1 tablet (50 mg total) by mouth daily 90 tablet 5 Active Active Problems Problem Noted Date Diagnosed Date Cervical radiculopathy 10/27/2023 Cervical spinal stenosis 09/14/2023 Cervical spondylosis with radiculopathy 05/25/19 Osteoarthritis of metacarpop halangeal (MCP) joint of left thumb 01/06/2023 Right elbow tendonitis 12/05/2021 Olecranon bursitis, right elbow 12/05/2021 Contusion of left foot 09/22/2021 Foot pain 06/19/2021 Plantar fasciitis of left foot 06/19/2021 Tinea pedis 06/19/2021 Mixed hyperlipidemia 04/21/2021 Carotid arterial disease 10/14/2020 Suture reaction 10/04/2020 Complete rupture of rotator cuff 10/04/2020 Traumatic rotator cuff tear, right, initial enco unter 08/07/2020 Biceps tendinitis of right shoulder 08/07/2020 H/O carotid endarterectomy 09/15/2019 TIA (transient ischemic attack) 09/15/2019 Chronic leukemia 09/15/2019 H/O ST elevation myocardial infarction 0 H/O TIA (transient ischemic attack) and stroke 0 09/15/2019 S/P coronary artery stent placement 09/15/2019 Coronary artery disease invo lving [place] coronary artery of [place] heart without angina pectoris 09/15/2019 HTN (hypertension), benign 09/15/2019 Subacromial impingement of right shoulder 2019 Chondromalacia of left patella 11/19/2017 Degenerative tear of posteri or horn of medial meniscus of right knee 11/19/2017 Articular cartilage disorder of left upper arm 0 11/19/2017 Colon polyp 02/23/2016 Overview (02/09/2019): Overview: colon 2017 2 mall polyp. f/u per path Trauma 09/20/2015 Resolved Problems Problem Noted Date Diagnosed Date Resolved Date Dyslipidemia 09/15/2019 10/09/2021 Surgical History Surgery Date Site/Laterality Comments KNEE ARTHROSCOPY 02/22/2003 - 02/22/2004 Left Arthroscopy knee CARDIAC CATHETERIZATION CAROTID ENDARTERECTOMY 02/22/2014 - 02/21/2015 Right preceded by TIA CORONARY ANGIOPLASTY 06/07/2019 RCA VASECTOMY 06/23/1991 - 07/23/1991 SHOULDER SURGERY 09/09/2020 Right Medical History Medical History Date Comments Hypertension Hypertension Gastroesophageal reflux disease GERD Chronic leukemia (HCC) 2018 Carotid artery disease TIA (transient ischemic attack) 2014 Coronary artery disease 2019 Heart disease June 07, 2019 Sleep apnea June 2015 CHF (congestive heart failure) (HCC) Premature baby 3-4 weeks early Chronic leukemia (HCC) [place] (myocardial infarction) (HCC) Subacromial impingement of right shoulder 2020 Biceps tendinitis of right shoulder Family History Medical History Relation Name Comments Cancer Father Adrián Ríos Cancer Mother Christina Ríos Cancer Other Family history of Cancer; Heart attack Sister Daniella Cohen Relation Name Status Comments Father Adrián Ríos Mother Christina Ríos Other Sister Daniella Cohen Social History Tobacco Use Types Packs/Day Years Used Date Smoking Tobacco: Never Smokeless Tobacco: Never Alcohol Use Standard Drinks/Week Comments Yes 30 (1 standard drink = 0.6 oz pure alcohol) Reduced to zero post heart attack AUDIT-C Answer Date Recorded Q1: How often do you have a drink containing alc ohol? Never 09/09/2020 Average Number of Drinks Not on file 021 Q3: How often do you have si x or more drinks on one occasion? 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 Not on file Not on file Obstetrics History Last Filed Vital Signs Vital Sign Reading Time Taken Comments Blood Pressure 126/84 05/08/2024 9:39 AM CDT Pulse 82 05/08/2024 9:39 AM CDT Temperature 36.8 C (98.3 F) 05/08/2024 9:39 AM CDT Respiratory Rate 16 05/08/2024 9:39 AM CDT Oxygen Saturation 99% 05/08/2024 9:39 AM CDT Inhaled Oxygen Concentration - - Weight 86 kg (189 lb 9.6 oz) 05/08/2024 9:39 AM CDT Height 185.4 cm (6' 1) 05/08/2024 9:39 AM CDT Body Mass Index 25.01 05/08/2024 9:39 AM CDT Plan of Treatment Health Maintenance Due Date Last Done Comments Colon Cancer Screening-Colonoscopy 1955 Depression Screening 1955 Hepatitis C Screening 1955 Prostate Cancer Screening-PSA 1956 DTaP/Tdap/Td Vaccine (1 - Tdap) 06/16/1967 Hepatitis B Screening 1974 Pneumococcal vaccine 65+ (1 of 2 - PCV) 06/16/1975 Zoster Vaccine (1 of 2) 06/16/1975 Well Visit 65+ 2021 Influenza Vaccine (Season Ended) 2024 Fall Risk Assessment 02/09/2025 02/10/2024 Medical Devices Implanted Type Area Composite Mechanic Device Identifier Shelf Expiration Date Model / Serial / Lot [employer] [id number]-[id number] Surelock 1.4mm Preload Flexible Welding Machine Operator Friction 2 [place] Suture Uhmwpe - [id number] Implanted:Qty: 4 on 09/09/2020 by Octavio Lobo MD at [facility] Right: Shoulder [employer] 06/12/2022 [id number] / / [id number] [employer] [id number] Surelock 1.4mm Preload Flexible Welding Machine Operator Friction 2 [place] Suture Uhmwpe - [id number] Implanted:Qty: 1 on 09/09/2020 by Octavio Lobo MD at [facility] Right: Shoulder [employer] 01/24/2023 CM-9614F / / [id number] Allosource [id number] Allomend 4x4cm Nonmesh 2-3.3mm Xthick Graft Soft Tissue Acellular - [id number] Implanted:Qty: 1 on 09/09/2020 by Octavio Lobo MD at [facility] Right: Shoulder [employer] 06/13/2022 [id number] / / [id number] [employer] [id number] Quattro X 5.5mm 1 Row Preload Taper Thread 2 Strand 2 [place] - [id number] Implanted:Qty: 1 on 09/09/2020 by Octavio Lobo MD at [facility] Right: Shoulder [employer] 01/30/2025 [id number] / / [id number] [facility] Medical Inc -[id number] Quattro 7mm 14mm [place] Biceps Proximal Screw Interference Sterile - [id number] Implanted:Qty: 1 on 09/09/2020 by Octavio Lobo MD at [facility] Right: Shoulder [employer] 12/24/2023 -[id number] / / [id number] Insurance [facility] MEDICARE MEDICARE [facility] [place] [address] MEDICARE [facility] Care Teams Fund Controller Relationship Specialty Start Date End Date Juani Jeff DO [address] [place] [address] [place] [address] PCP - General Family Medicine 08/25/23 Octavio Lobo MD Surgeon Orthopedic Surgery 09/09/20
--- OUTSIDE RECORDS SUMMARY | 2024-08-31 21:56 | XMS_ITS ---
Author Organization [facility] Physician Office Building [address] [place] [phone] Care Team Providers Care Web Page Developer Name Role Phone Octavio Lobo MD Unavailable [phone] Juani Jeff DO Primary Care Provider + Active Problems Problem Noted Date Diagnosed Date [...] placement 09/15/2019 Coronary artery disease invo lving [place] coronary artery of [place] heart without angina pectoris 09/15/2019 HTN (hypertension), benign 09/15/2019 Subacromial impingement of right shoulder 2019 Chondromalacia of left patella 11/19/2017 Degenerative tear of posteri or horn of medial meniscus of right knee 11/19/2017 Articular cartilage disorder of left upper arm 0 11/19/2017 Colon polyp 02/23/2016 Overview (02/09/2019): Overview: colon 2016 2 mall polyp. f/u per path Trauma 09/20/2015 Current Treatment and Therapy Plans No current plan information found. Past Treatment and Therapy Plans No past plan information found. Lifetime Dose Tracking * Chemical Lifetime Dose Automatic Entry Manual Entr y Fluoro Time 0.157 minutes 0.157 minutes 0 minutes Air kerma at the reference point (Ka,r) 1.064 mGy 1 .064 mGy 0 mGy Resolved Problems Problem Noted Date Diagnosed Date Resolved Date Dyslipidemia 09/15/2019 10/09/2021
--- OUTSIDE RECORDS SUMMARY | 2024-08-31 21:56 | XMS_ITS | Referral Summary ---
Author Organization [facility] Physician Office Building [address] [place] [phone] Care Team Providers Care Maintenance Mechanic Millwright Name Role Phone Octavio Lobo MD Unavailable [phone] Junai Jeff DO Primary Care Provider + Allergies [...] placement 09/15/2019 Coronary artery disease invo lving [place] coronary artery of [place] heart without angina pectoris 09/15/2019 HTN (hypertension), [...] Diagnosed Date Resolved Date Dyslipidemia 09/15/2019 10/09/2021 Social History Tobacco Use Types Packs/Day Years [...] on file Legal 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 Gender Identity Male 06/21/2019 3:55 PM CDT Sexual Orientation Straight 06/21/2019 3: 55 PM CDT Occupation Industry Job Start Date Job End Date [employer] Not on file Not on file Not on file Last Filed Vital Signs Vital Sign Reading [...] 05/08/2024 9:39 AM CDT Plan of Treatment Not on file Medical Devices Implanted Type Area Case Operator Device Identifier Shelf Expiration Date Model / Serial / Lot [employer] [id number] Surelock 1.4mm Preload Flexible Bioinformatics Associate 2 [place] Suture Uhmwpe - [id number] Implanted:Qty: 4 on 09/09/2020 by Octavio Lobo MD at [facility] Right: Shoulder [employer] 06/12/2022 CM-9614F / / [id number] [employer] Cm-[id number] Surelock 1.4mm Preload Flexible Bioinformatics Associate 2 [place] Suture Uhmwpe - [id number] Implanted:Qty: 1 on 09/09/2020 by Octavio Lobo MD at [facility] Right: Shoulder [employer] 01/24/2023 CM-9614F / / [id number] Allosource [id number] Allomend 4x4cm Nonmesh 2-3.3mm Xthick Graft Soft Tissue Acellular - [id number] Implanted:Qty: 1 on 09/09/2020 by Octavio Lobo MD at [facility] Right: Shoulder [employer] 06/13/2022 [id number] / / [id number] [employer] Cm-[id number] Quattro X 5.5mm 1 Row Preload Taper Thread 2 Strand 2 [place] - [id number] Implanted:Qty: 1 on 09/09/2020 by Octavio Lobo MD at [facility] Right: Shoulder [employer] 01/30/2025 [id number] / / [id number] [employer] [id number] Quattro 7mm 14mm [place] Biceps Proximal Screw Interference Sterile - [id number] Implanted:Qty: 1 on 09/09/2020 by Octavio Lobo MD at [facility] Right: Shoulder [employer] 12/24/2023 [id number] / / [id number] [place] [address] [facility] MEDICARE [facility]ICARE [facility] [employer] MEDICARE [facility] FED[employer]AL Member Subscriber Plan / Payer (Ef fective 2016-Present) Name:BIPIN RÍOS Relation to Subscriber:Self Name:Bipin Ríos Payer ID:[id number] (NAIC) Group ID:[id number] Type:BC ALLIANCE Address: [facility] [id number] [place] [id number] Care Teams Maintenance Mechanic Millwright Relationship Specialty Start Date End Date Juani Jeff DO [address] [place] [address] [address] PCP - General Family Medicine 08/25/23 Octavio Lobo MD Surgeon Orthopedic Surgery 09/09/20
--- OUTSIDE RECORDS SUMMARY | 2024-08-31 21:56 | XMS_ITS | Clinical Summary ---
Author Organization [facility] Address [address] [place] [address] Care Team Providers Care Strap Sewer Name Role Phone Vianca Treviño RN Unavailable [phone] Source Comments [facility],non-owned Affiliates and Associated Physician Practices is amultiple site organization consisting of ambulatory clinics and hospital sitesin [place], [place], [place] and [place]. This disclosure is being madepursuant to the Care Everywhere program and may not contain all information available regarding this patient. Last updated 17.[facility] Allergies No known active allergies Medications * Be aware that medications may not be up to date on this document. Alwaysverify current medications with the patient. aspirin (ASPIRIN) 81 MG tablet Take 81 mg by mouth once daily Active hydrocodone-acet aminophen (NORCO) 10-325 MG tablet Take 1 Tab by mouth every 4 hours as needed for Pain 20 Tab 0 5 Active Additional Information Patient not taking.Reported on 01/22/2015 atorvastatin (LIPITOR) 80 MG tablet Take 80 mg by mouth at bedtime Active metoprolol tartrate (LOPRESSOR) 25 MG tablet Take 25 mg by mouth once daily Active lisinopril (PRINIVIL;ZESTRI L) 5 MG tablet Take 5 mg by mouth once daily Active nitroGLYCERIN (NITROSTAT) 0.4 MG tablet Dissolve 0.4 mg under the tongue 0 Active azithromycin (ZITHROMAX) 250 MG tabletIndication s:Acute sinusitis, recurrence not specified, unspecified location Take 2 tabs today, then 1 tab daily for next 4 days 6 tablet 1 Active albuterol HFA (PROVENTIL; VENTOLIN; PROAIR) 108 (90 Base) MCG/ACT inhalerIndicatio ns:Acute bronchitis, unspecified organism Inhale 2 (two) puffs by mouth every 6 hours as needed for Wheezing or Cough 1 g 1 Active fluticasone propionate (FLONASE) 50 MCG/ACT nasal sprayIndications :Acute sinusitis, recurrence not specified, unspecified location [place] 2 (two) sprays into each nostril once daily 1 Each 1 Active Active Problems Problem Noted Date Diagnosed Date Biceps tendinitis of right shoulder 08/07/2020 Chronic leukemia 09/15/2019 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 f/u per path Family History Medical History Relation Name Comments Cancer Father lung Cancer Mother bladder Relation Name Status Comments Father Mother Social History Tobacco Use Types Packs/Day Years Used Date Smoking Tobacco: Never Smokeless Tobacco: Never Alcohol Use Standard Drinks/Week Comments Not Currently 30 (1 standard drink = 0.6 oz pu re alcohol) Sex and Gender Information Value Date Recorded Sex Assigned at Male 06/23/2022 12:24 PM CDT Legal Sex Male 6:00 AM [employer]O REFINISH[employer] Gender Identity Male 06/23/2022 12:24 PM CDT Sexual Orientation Straight 06/23/2022 12 :24 PM CDT Last Filed Vital Signs Vital Sign Reading Time Taken Comments Blood Pressure 124/84 02/06/2021 11:08 AM [employer]O REFINISHER Pulse 81 02/06/2021 11:08 AM [employer]O REFINISHER Temperature 36.9 C (98.4 F) 02/06/2021 11:08 AM PIANO REFINISHER Respiratory Rate 17 02/06/2021 11:08 AM PIANO REFINISHER Oxygen Saturation 97% 02/06/2021 11:08 AM PIANO REFINISHER Inhaled Oxygen Concentration - - Weight 87.1 kg (192 lb) 02/06/2021 11:08 AM [employer]ANO REFINISHER Height 185.4 cm (6' 1) 02/06/2021 11:08 AM PIANO REFINISHER Body Mass Index 25.33 02/06/2021 11:08 AM PIANO REFINISHER Plan of Treatment Health Maintenance Due Date Last Done Comments COLOGUARD (AGES 45-75) - COLON CA SCREENING 1955 CT COLONOGRAPHY - COLON CA SCREENING 1955 FIT - COLON CA SCREENING 1955 FLEX SIG - COLON CA SCREENING 1955 HEPATITIS C SCREENING 06/11/1974 DTAP/TDAP/TD VACCINES (1 - Tdap) 06/16/1975 PNEUMOCOCCAL VACCINE 50+ (1 of 1 - PCV) 2006 ZOSTER VACCINE (1 of 2) 2006 SCREENING FOR DIABETES 10/15/2023 , 09/20/2015, 09/19/2015, Additional history exists COVID-19 VACCINE ( - season) 2023 06/25/2020, 05/27/2020 DEPRESSION SCREENING 02/23/2024 INFLUENZA VACCINE (#1) 2024 COLON MONITORING 02/05/2027 02/05/2017, , 11/16/2006 COLONOSCOPY - COLON CA SCREENING 02/05/2027 02/05/2017, 02/05/2017, 11/16/2006 Colorectal Cancer Screening 02/05/2027 Respiratory Syncytial Virus (RSV) Vaccine Pt: or over 60 yrs (1 - 1-dose 75+ series) 06/16/2031 HEPATITIS B VACCINE Aged Out No longe r eligible based on patient's age to complete this topic HIB VACCINE Aged Out No longer eligi ble based on patient's age to complete this topic HPV VACCINE Aged Out No longer eligi ble based on patient's age to complete this topic MENINGOCOCCAL (Group B) VACCINE SHARED DECISION-MAKING Aged Out No longer eligible based on patient's age to complete this topic MENINGOCOCCAL GROUPS A/C/Y/W VACCINE Aged Out No longer eligible based on patient's age to complete this topic Medical Devices Implanted Type Area Mid Level Java Developer Device Identifier Shelf Expiration Date Model / Serial / Lot Patch Juan Eptfe 1 X 9 X .5mm Implanted:Qty: 1 on 01/01/2015 by Salvador Cunningham MD at [facility] Right: [employer] 10/19/2017 [id number] / [id number] Procedures Procedure Name Priority Date/Time Associated Diagnosis Comments ENDOSCOPY, COLON, SCREENING Routine 02/05/2017 1:24 PM [employer]ANO REFINISHER BASIC METABOLIC PANEL (CALCIUM TOTAL) Routine 09/20/2015 5:00 AM CDT from Last 3 Months or Most Recently Relevant to Health Maintenance Results * ENDOSCOPY, COLON, SCREENING (02/05/2017 1:24 PM PIANO REFINISHER) Report Endoscopy POC _ Patient Name: Bipin Ríos Procedure Date: 02/05/2017 1:24 PM Date of : 1955 Admit Type: Outpatient Age: 61 Gender: Male Attending MD: Angel Zapata MD _ Procedure: Colonoscopy Indications: Screening for colorectal malignant neoplasm, Last colonoscopy: 2006 Providers: Angel Zapata MD (Doctor) Referring MD: Ash Figueroa MD (Referring MD) Medicines: Monitored Anesthesia Care Complications: No immediate complications. _ Procedure: Pre-Anesthesia Assessment: - Prior to the procedure, a History and Physical was performed, and patient medications and allergies were reviewed. The patient is competent. The risks and benefits of the procedure and the sedation options and risks were discussed with the patient. All questions were answered and informed consent was obtained. Patient identification and proposed procedure were verified by the physician in the pre-procedure area. Mental Status Examination: alert and oriented. Airway Examination: normal oropharyngeal airway and neck mobility. Respiratory Examination: clear to auscultation. CV Examination: normal. Prophylactic Antibiotics: The patient does not require prophylactic antibiotics. Prior Anticoagulants: The patient has taken aspirin, last dose was 5 days prior to procedure. ASA Grade Assessment: II - A patient with mild systemic disease. After reviewing the risks and benefits, the patient was deemed in satisfactory condition to undergo the procedure. The anesthesia plan was to use monitored anesthesia care (MAC). Immediately prior to administration of medications, the patient was re-assessed for adequacy to receive sedatives. The heart rate, respiratory rate, oxygen saturations, blood pressure, adequacy of pulmonary ventilation, and response to care were monitored throughout the procedure. The physical status of the patient was re-assessed after the procedure. After I obtained informed consent, the scope was passed under direct vision. Throughout the procedure, the patient's blood pressure, pulse, and oxygen saturations were monitored continuously. The Colonoscope was introduced through the anus and advanced to the cecum, identified by appendiceal orifice and ileocecal valve. The colonoscopy was performed without difficulty. The patient tolerated the procedure well. The quality of the bowel preparation was excellent. Findings: The perianal and digital rectal examinations were normal. Pertinent negatives include no palpable rectal lesions and normal prostate (size, shape, and consistency). The retroflexed view of the distal rectum and anal verge was normal and showed no anal or rectal abnormalities. A 5 mm polyp was found in the proximal ascending colon. The polyp was sessile. This was biopsied with a hot forceps for histology. Estimated blood loss: none. A 10 mm polyp was found in the mid sigmoid colon. The polyp was sessile. The polyp was removed with a hot snare. Resection and retrieval were complete. Estimated blood loss: none. The exam was otherwise without abnormality. _ Impression: - The distal rectum and anal verge are normal on retroflexion view. - One 5 mm polyp in the proximal ascending colon. Biopsied. - One 10 mm polyp in the mid sigmoid colon, removed with a hot snare. Resected and retrieved. - The examination was otherwise normal. Recommendation: - Await pathology results. - If the pathology report reveals adenomatous tissue, then repeat the colonoscopy for surveillance in 5 years. - If the pathology report indicates hyperplastic polyp, then repeat colonoscopy for surveillance in 10 years. - Return to my office PRN. - Return to primary care physician as previously scheduled. Procedure Code(s): --- Professional --- 36234, Colonoscopy, flexible; with removal of tumor(s), polyp(s), or other lesion(s) by snare technique [id number], 59, Colonoscopy, flexible; with removal of tumor(s), polyp(s), or other lesion(s) by hot biopsy forceps --- Technical --- 00819, Colonoscopy, flexible; with removal of tumor(s), polyp(s), or other lesion(s) by snare technique [id number], 59, Colonoscopy, flexible; with removal of tumor(s), polyp(s), or other lesion(s) by hot biopsy forceps Diagnosis Code(s): --- Professional --- Z12.11, Encounter for screening for malignant neoplasm of colon D12.2, Benign neoplasm of ascending colon D12.5, Benign neoplasm of sigmoid colon --- Technical --- Z12.11, Encounter for screening for malignant neoplasm of colon D12.2, Benign neoplasm of ascending colon D12.5, Benign neoplasm of sigmoid colon CPT copyright 2015 [employer]. All rights reserved. The codes documented in this report are preliminary and upon fuel cell technician review may be revised to meet current compliance requirements. Dr. Angel Zapata MD ___ Angel Zapata MD 02/05/2017 2:55:01 PM This report has been signed electronically. Number of Addenda: 0 Note Initiated On: 02/05/2017 1:24 PM [facility] ENDOSCOPY 02/05/2017 1:24 PM PIANO REFINISHER Angel Zapata MD GI PROCEDURE ORDERABLES William yi Result - Final [facility] [place] [address] * (ABNORMAL) BASIC METABOLIC PANEL (CALCIUM TOTAL) (09/20/2015 5:00 AM CDT) BUN 18 7 - 26 mg/dL [facility] Creatinine 1.0 0.6 - 1.2 mg/dL [facility] Sodium 137 136 - 145 mmol/L [facility] Potassium 4.4 3.5 - 4.5 mmol/L [facility] Chloride 103 98 - 107 mmol/L [facility] CO2 23 22 - 29 mmol/L [facility] Glucose 106 70 - 115 mg/dL [facility] Calcium 8.3(L) 8.4 - 10.2 mg/dL [facility] Anion Gap 15 8 - 18 [facility] BUN/Creatinine Ratio 18 7 - 23 [facility] Osmolality Calculated 286 270 - 300 mOsm/kg [facility] eGFR >60 >60 mL/min/1.7 3 m2 [facility] Blood specimen (specimen) BLOOD SPECIMEN / Unknown 09/20/2015 5:00 AM CDT 09/20/2015 5:15 AM CDT Tae Dave MD LAB - CHEMISTRY ORDERABLES Myriam l Result [address] [phone] from Last 3 Months or Most Recently Relevant to Health Maintenance Insurance [facility] Advance Directives * Full Code (Latest Code Status on File) Date Activated Date Inactivated Comments 01/01/2015 7:52 PM 01/02/2015 11:49 AM Care Teams Strap Sewer Relationship Specialty Start Date End Date Vianca Treviño RN Knitter Mechanic 01/02/15
[2024-08-31 22:05] VITALS: BP 163/93; PULSE 77; RESP 18; TEMP 36.3; O2SAT 99
[2024-08-31 22:28] LABS: Hematocrit 41.2 % (42.0-52.0); Hemoglobin 13.3 g/dL (14.0-18.0); Mean Corpuscular HGB Conc 32.3 g/dl (32-36); Mean Corpuscular Hemoglobin 29.6 pg (26-34); Mean Corpuscular Volume 91.8 fl (80-100); Platelet Count Result 149 k/mm3 (150-375); Red Blood Count 4.49 M/mm3 (4.6-6.20); White Blood Count 31.3 K/mm3 (4.5-10.0)
[2024-08-31 22:39] LABS: INR 0.9; Prothrombin Time 12.6 Seconds (11.1-14.7)
[2024-08-31 22:40] LABS: Partial Thromboplastin Time 22.6 Seconds (22.3-36.8)
[2024-08-31 23:00] LABS: Alanine Aminotransferase 39 U/L (6-50); Albumin Level 4.4 g/dL (3.5-5.1); Alkaline Phosphatase 66 U/L (38-126); Anion Gap 6 mmol/L (4-12); Aspartate Amino Transferase 55 U/L (17-59); Bilirubin,Total 1.3 mg/dL (0.2-1.3); Blood Urea Nitrogen 18 mg/dL (9-20); Calcium 9.2 mg/dL (8.4-10.2); Carbon Dioxide 29 mmol/L (22-30); Chloride 100 mmol/L (98-107); Estimated CRCL calculation 81 ml/min; Estimated Glomerular Filt Rate > 60; Glucose 100 mg/dL (65-110); Lipase 231 U/L (23-300); Potassium 4.4 mmol/L (3.4-5.0); Sodium 135 mmol/L (137-145); Total Protein 7.1 g/dL (6.3-8.2)
[2024-08-31 23:11] LABS: Troponin I 0.015 ng/mL (0.000-0.034)
[2024-08-31 23:23] LABS: Total Cells Counted 100
[2024-08-31 23:24] LABS: Band Neutrophils Percent 0 % (0-6); Lymphocytes Absolute Manual 26.29 K/mm3 (1.1-4.5); Lymphocytes Percent Manual 84 % (18-44); Monocytes Absolute Manual 0.62 K/mm3 (0.1-0.90); Monocytes Percent Manual 2 % (3-9); Neutrophils Absolute Manual 4.38 K/mm3 (1.3-6.7); Neutrophils Percent Manual 14 % (46-73)
[2024-08-31 23:25] LABS: Schistocytes None Seen
[2024-08-31 23:26] LABS: Smudge Cells PRESENT
[2024-09-01] VITALS (24 sets, daily range): BP systolic 126–161; BP diastolic 76–98; PULSE 63–97; RESP 14–20; TEMP 36.2–36.7; O2SAT 93–100; BMI 22.8
--- NOTE | 2024-09-01 | ECHO_ITS ---
Patient Info Name: Bipin Artis Age: 69 years : 1955 Gender: Male Ht: 71 in Wt: 174 lbs BSA: 1.99 m2 HR: 72 bpm BP: 150 / 84 mmHg Heart Rhythm: Sinus Rhythm Technical Quality: Good Exam Date: 09/01/2024 1:07 PM Patient Status: O Admit Date: 09/01/2024 Exam Type: CA echo doppler color flow Complete two-dimensional, color flow and Doppler transthoracic echocardiogram is performed. Staff Referring Physician: Devan Castellanos [place] Records Management Officer: Katy Mason Attending Provider: Ariel Miranda Summary 1. Complete two-dimensional, color flow and Doppler transthoracic echocardiogram is performed. 2. Left ventricular chamber dimension is normal. 3. Left ventricular systolic function is normal, estimated at 65-70. 4. There is mildly increased left ventricular wall thickness. 5. The left ventricular diastolic function is grade I diastolic dysfunction. 6. The basal inferolateral wall, and mid inferolateral wall are akinetic. 7. There is mild aortic valve regurgitation. 8. There is mild aortic valve calcification. 9. There is moderate aortic valve sclerosis. 10. There is mild mitral valve regurgitation. 11. The mitral valve has thickened leaflets. 12. There is mild pulmonic regurgitation. Left Ventricle Left ventricular chamber dimension is normal. Left ventricular systolic function is normal, estimated at 65-70. There is mildly increased left ventricular wall thickness. The left ventricular diastolic function is grade I diastolic dysfunction. The basal inferolateral wall, and mid inferolateral wall are akinetic. All other fung appear normal. Right Ventricle Right ventricular chamber dimension is normal. Right ventricular systolic function is normal. Left Atria Left atrial chamber dimension is normal. Right Atria Right atrial chamber dimension is normal. Atrial Septum Intact interatrial septum visualized by color flow imaging. Aortic Valve The aortic valve is trileaflet. There is moderate aortic valve sclerosis. There is no aortic valve stenosis. There is mild aortic valve regurgitation. There is mild aortic valve calcification. Pulmonic Valve The pulmonic valve is normal. There is no pulmonic valve stenosis. There is mild pulmonic regurgitation. Mitral Valve The mitral valve has thickened leaflets. There is no mitral valve stenosis. There is mild mitral valve regurgitation. Tricuspid Valve The tricuspid valve leaflets are normal. There is no significant tricuspid valve stenosis. There is trace tricuspid valve regurgitation. Pericardium/Pleural The pericardium appears normal. There is no pericardial effusion. Inferior Vena Cava Normal inferior vena cava with >50% collapse upon inspiration consistent with normal right atrial pressure, 5 mmHg. Aorta The aortic root size at the sinus of Valsalva is normal. Left Ventricular Outflow Tract Name Value Normal LVOT 2D LVOT Diameter 2.0 cm LVOT Doppler LVOT Peak Velocity 122 cm/s LVOT Peak Gradient 6 mmHg LVOT Mean Gradient 3 mmHg LVOT VTI 28 cm LVOT Stroke Volume 84 ml LVOT CO 6.0 l/min LVOT CI 3.0 l/min/m2 Pulmonic Valve Name Value Normal RVOT Doppler RVOT Peak Velocity 77 cm/s RVOT Peak Gradient 2 mmHg PV Doppler PV Peak Velocity 111 cm/s PV Peak Gradient 5 mmHg Mitral Valve Name Value Normal MV Diastolic Function MV E Peak Velocity 65 cm/s MV A Peak Velocity 95 cm/s MV E/A 0.7 MV Decel Time (PW) 236 ms MV Annular TDI MV E/e' (Septal) 9.2 MV E/e' (Lateral) 5.9 MV E/e' (Average) 7.6 Tricuspid Valve Name Value Normal Estimated PAP/RSVP RA Pressure 5 mmHg <=5 Aortic Valve Name Value Normal AV Doppler AV Peak Velocity 164 cm/s AV Peak Gradient 11 mmHg AV Area (Cont Eq Tung) 2.2 cm2 AV DI (Tung) 0.74 AV Regurgitation 2D LVOT Area 3.0 cm2 Ventricles Name Value Normal LV Dimensions 2D/MM IVS Diastolic Thickness (2D) 1.3 cm 0.6-1.0 LVID Diastole (2D) 4.2 cm 4.2-5.8 LVIW Diastolic Thickness (2D) 1.0 cm 0.6-1.0 LVID Systole (2D) 3.0 cm 2.5-4.0 LVOT Diameter 2.0 cm LV Mass (2D Cubed) 167.18 g 88.00-224.00 LV Mass Index (2D Cubed) 84 g/m2 49-115 Relative Wall Thickness (2D) 0.50 <=0.42 LV Fractional Shortening/Ejection Fraction 2D/MM LV Fractional Shortening (2D) 29 % 25-43 LV EF (2D Teichholz) 57 % LV Diastolic Volume (4C MOD) 110 ml LV EF (4C MOD) 60 % LV Diastolic Volume (2C MOD) 115 ml LV EF (2C MOD) 66 % LV Diastolic Volume (BP MOD) 112 ml 62-150 LV Diastolic Volume Index (BP MOD) 56 ml/m2 34-74 LV Systolic Volume (BP MOD) 43 ml 21-61 LV Systolic Volume Index (BP MOD) 21 ml/m2 11-31 LV EF (BP MOD) 62 % 52-72 LV Diastolic Length (4C) 9.5 cm LV Systolic Length (4C) 7.8 cm LV Stroke Volume (4C MOD) 66 ml Atria Name Value Normal LA Dimensions LA Volume (4C A-L) 50 ml LA Volume (BP A-L) 50 ml RA Dimensions RA Systolic Major [place] Length (4C) 4.8 cm 2.1-2.7 RA Area (4C) 15.2 cm2 <=18.0 Wall Motion Scoring Wall Motion Scoring Index: 1.24 Report Signatures
--- NOTE | 2024-09-01 00:51 | ED.CHESTPAIN ---
HPI - Chest Pain General Chief Complaint: Chest Pain <Karen Santacruz PA-C - Last Filed: 09/01/24 01:16> Stated Complaint: CHEST PAIN,SHORT OF BREATH <Karen Santacruz PA-C - Last Filed: 09/01/24 01:16> Time Seen by Provider: 09/01/24 00:46 <Karen Santacruz PA-C - Last Filed: 09/01/24 01:16> Source: patient <JUSTIN Gilliland Last Filed: 09/01/24 01:16> Mode of arrival: ambulatory <Karen Santacruz PA-C - Last Filed: 09/01/24 01:16> Limitations: no limitations <Karen Santacruz PA-C - Last Filed: 09/01/24 01:16> History of Present Illness HPI narrative: This is a 69-year-old male that presents to the emergency department for chest pain. Reports this morning he woke up feeling not quite right, short of breath, nauseous. After cutting the grass today he had substernal chest discomfort/tightness. His symptoms have improved since onset with rest. He has history of CAD, stent placed in 2019. <Karen Santacruz PA-C - Last Filed: 09/01/24 01:16> Related Data Home Medications: Home Medications ?Medication ?Instructions ?Recorded ?Confirmed ?Last Taken ?Type aspirin 81 mg chewable tablet 81 mg PO DAILY 06/07/19 09/01/24 08/31/24 08:00 History 81 mg <Karen Santacruz PA-C - Last Filed: 09/01/24 01:16> Allergies/Adverse Reactions: Allergies Allergy/AdvReac Type Severity Reaction Status Date / Time No Known Allergies Allergy Verified 08/31/24 22:10 <Karen Santacruz PA-C - Last Filed: 09/01/24 01:16> Review of Systems Review of Systems: All systems reviewed & are unremarkable except as noted in HPI and below <Karen Santacruz PA-C - Last Filed: 09/01/24 01:16> [facility] Past Medical History Medical History: Medical History (Updated 09/01/24 @ 01:13 by Karen Santacruz PA-C) Carotid arterial disease Hypercholesterolemia Hypertension <Karen Santacruz PA-C - Last Filed: 09/01/24 01:16> Surgical History Surgical History: Surgical History H/O carotid endarterectomy H/O carotid endarterectomy <Karen Santacruz PA-C - Last Filed: 09/01/24 01:16> Family History Family History: Family History Unknown No problems noted. Father Lung cancer Mother Bladder cancer <Karen Santacruz PA-C - Last Filed: 09/01/24 01:16> Social History Social History: Social History Social History: Non-smoker Smoking status: Never smoker Alcohol intake: current Drinks per week: 21 Substance use: current Substance use type: marijuana Other substance usage details: occasional Do You Feel Safe in your Home?: Yes Lack of Transportation: No Lack of Food: Never True Current Housing: I Have Housing Concerned About Future Housing: No Difficulty Paying Gas/Electric Bills: No Difficulty Paying for Meds: No Currently Unemployed: No Education: Bachelor's Degree Difficulty w/ Childcare or Family Care: No Gender identity (if verbalized by the patient): Male Spiritual care concerns: No Agree to blood products: Yes <Karen Santacruz PA-C - Last Filed: 09/01/24 01:16> Exam Narrative: GENERAL: Well-appearing, well-nourished, and in no acute distress. HEAD: Normocephalic, atraumatic. EYES: EOMI. CHEST: Clear to auscultation. No respiratory distress. No wheezes rales or rhonchi HEART: Regular rate and rhythm. No murmur heard. Normal peripheral pulses. EXTREMITIES: Normal range of motion. No edema. SKIN: Warm, dry, no rash. NEURO: No focal deficits. Alert and oriented x3. PSYCH: Normal mood and affect <Karen Santacruz PA-C - Last Filed: 09/01/24 01:16> Course BARBECUE COOK/PA Physician Supervision For this patient encounter, I reviewed the BARBECUE COOK or PA documentation, treatment plan, and medical decision making and had tzax-ip-muce time with this patient. I performed all aspects of the MDM as documented. <Nehal Hernandez MD - Last Filed: 09/01/24 05:42> Vital Signs Vital signs: Vital Signs Temperature 97.3 F L 08/31/24 22:05 Pulse Rate 77 08/31/24 22:05 Respiratory Rate 18 08/31/24 22:05 Blood Pressure 163/93 H 08/31/24 22:05 Pulse Oximetry 99 08/31/24 22:05 Oxygen Delivery Room Air 08/31/24 22:05 Temperature 97.7 F 09/01/24 03:35 Pulse Rate 63 09/01/24 04:00 Respiratory Rate 16 09/01/24 03:35 Blood Pressure 152/76 H 09/01/24 03:35 Pulse Oximetry 100 09/01/24 03:35 Oxygen Delivery Room Air 08/31/24 22:05 <Karen Santacruz PA-C - Last Filed: 09/01/24 01:16> Vital Signs Temperature 97.3 F L 08/31/24 22:05 Pulse Rate 77 08/31/24 22:05 Respiratory Rate 18 08/31/24 22:05 Blood Pressure 163/93 H 08/31/24 22:05 Pulse Oximetry 99 08/31/24 22:05 Oxygen Delivery Room Air 08/31/24 22:05 Temperature 97.7 F 09/01/24 03:35 Pulse Rate 63 09/01/24 04:00 Respiratory Rate 16 09/01/24 03:35 Blood Pressure 152/76 H 09/01/24 03:35 Pulse Oximetry 100 09/01/24 03:35 Oxygen Delivery Room Air 08/31/24 22:05 <Nehal Hernandez MD - Last Filed: 09/01/24 05:42> MDM - Chest Pain MDM Narrative Medical decision making narrative: Patient presents to the emergency department for an episode of chest pain today. History of coronary artery disease, stent placed in 2019. His vitals are stable. CBC with leukocytosis, patient has history of chronic leukemia. Metabolic panel with normal appearing kidney function, baseline EKG without acute ST changes, baseline troponin is negative. Chest x-ray without acute cardiopulmonary abnormality. His heart score is 6. Will be admitted for further evaluation/management <Karen Santacruz PA-C - Last Filed: 09/01/24 01:16> Patient presents to the emergency department for an episode of chest pain today. History of coronary artery disease, stent placed in 2019. His vitals are stable. CBC with leukocytosis, patient has history of chronic leukemia. Metabolic panel with normal appearing kidney function, baseline EKG without acute ST changes, baseline troponin is negative. Chest x-ray without acute cardiopulmonary abnormality. His heart score is 6. Will be admitted for further evaluation/management. <Nehal Hernandez MD - Last Filed: 09/01/24 05:42> Differential Diagnosis Differential diagnosis: Likely stable angina, unstable angina pectoris, st elevation myocardial infarction, chest pain and other (NSTEMI) <Karen Santacruz PA-C - Last Filed: 09/01/24 01:16> Lab Data Attestation: I reviewed the patient's lab results. <Karen Santacruz PA-C - Last Filed: 09/01/24 01:16> Result diagrams: 08/31/24 22:23 08/31/24 22:23 <Karen Santacruz PA-C - Last Filed: 09/01/24 01:16> Labs: Lab Results 08/31/24 Range/Units 22:23 WBC 31.3 H (4.5-10.0) K/mm3 RBC 4.49 L (4.6-6.20) M/mm3 Hgb 13.3 L (14.0-18.0) g/dL Hct 41.2 L (42.0-52.0) % MCV 91.8 (80-100) fl MCH 29.6 (26-34) pg MCHC 32.3 (32-36) g/dl RDW 13.2 (11.5-14.5) % Plt Count 149 L (150-375) k/mm3 MPV 9.3 (7.4-10.4) fl Immature Gran % (Auto) Not Reportable Neut % (Auto) Not Reportable Lymph % (Auto) Not Reportable Leon % (Auto) Not Reportable Eos % (Auto) Not Reportable Baso % (Auto) Not Reportable Lymph # (Auto) Not Reportable Leon # (Auto) Not Reportable Eos # (Auto) Not Reportable Baso # (Auto) Not Reportable Abs Immat Gran (auto) Not Reportable Absolute Neuts (auto) Not Reportable Absolute Nucleated RBC Not Reportable Total Counted 100 Neutrophils % (Manual) 14 L (46-73) % Band Neutrophils % 0 (0-6) % Lymphocytes % (Manual) 84 H (18-44) % Monocytes % (Manual) 2 L (3-9) % Nucleated RBC % Not Reportable Abs Neuts (Manual) 4.38 (1.3-6.7) K/mm3 Abs Lymphs (Manual) 26.29 H (1.1-4.5) K/mm3 Abs Monocytes (Manual) 0.62 (0.1-0.90) K/mm3 Atypical Lymphocytes Present Smudge Cells Present Platelet Estimate Adequate (Adequate) Schistocytes None seen PT 12.6 (11.1-14.7) Seconds INR 0.9 APTT 22.6 (22.3-36.8) Seconds Sodium 135 L (137-145) mmol/L Potassium 4.4 (3.4-5.0) mmol/L Chloride 100 (98-107) mmol/L Carbon Dioxide 29 (22-30) mmol/L Anion Gap 6 (4-12) mmol/L BUN 18 (9-20) mg/dL Creatinine 0.86 (0.7-1.3) mg/dL Estim Creat Clear Calc 81 ml/min Estimated GFR > 60 (59 - ) Glucose 100 (65-110) mg/dL Calcium 9.2 (8.4-10.2) mg/dL Total Bilirubin 1.3 (0.2-1.3) mg/dL AST 55 (17-59) U/L ALT 39 (6-50) U/L Alkaline Phosphatase 66 (38-126) U/L Troponin I 0.015 (0.000-0.034) ng/mL Total Protein 7.1 (6.3-8.2) g/dL Albumin 4.4 (3.5-5.1) g/dL Lipase 231 (23-300) U/L <Karen Santacruz PA-C - Last Filed: 09/01/24 01:16> Lab Results 08/31/24 Range/Units 22:23 WBC 31.3 H (4.5-10.0) K/mm3 RBC 4.49 L (4.6-6.20) M/mm3 Hgb 13.3 L (14.0-18.0) g/dL Hct 41.2 L (42.0-52.0) % MCV 91.8 (80-100) fl MCH 29.6 (26-34) pg MCHC 32.3 (32-36) g/dl RDW 13.2 (11.5-14.5) % Plt Count 149 L (150-375) k/mm3 MPV 9.3 (7.4-10.4) fl Immature Gran % (Auto) Not Reportable Neut % (Auto) Not Reportable Lymph % (Auto) Not Reportable Leon % (Auto) Not Reportable Eos % (Auto) Not Reportable Baso % (Auto) Not Reportable Lymph # (Auto) Not Reportable Leon # (Auto) Not Reportable Eos # (Auto) Not Reportable Baso # (Auto) Not Reportable Abs Immat Gran (auto) Not Reportable Absolute Neuts (auto) Not Reportable Absolute Nucleated RBC Not Reportable Total Counted 100 Neutrophils % (Manual) 14 L (46-73) % Band Neutrophils % 0 (0-6) % Lymphocytes % (Manual) 84 H (18-44) % Monocytes % (Manual) 2 L (3-9) % Nucleated RBC % Not Reportable Abs Neuts (Manual) 4.38 (1.3-6.7) K/mm3 Abs Lymphs (Manual) 26.29 H (1.1-4.5) K/mm3 Abs Monocytes (Manual) 0.62 (0.1-0.90) K/mm3 Atypical Lymphocytes Present Smudge Cells Present Platelet Estimate Adequate (Adequate) Schistocytes None seen PT 12.6 (11.1-14.7) Seconds INR 0.9 APTT 22.6 (22.3-36.8) Seconds Sodium 135 L (137-145) mmol/L Potassium 4.4 (3.4-5.0) mmol/L Chloride 100 (98-107) mmol/L Carbon Dioxide 29 (22-30) mmol/L Anion Gap 6 (4-12) mmol/L BUN 18 (9-20) mg/dL Creatinine 0.86 (0.7-1.3) mg/dL Estim Creat Clear Calc 81 ml/min Estimated GFR > 60 (59 - ) Glucose 100 (65-110) mg/dL Calcium 9.2 (8.4-10.2) mg/dL Total Bilirubin 1.3 (0.2-1.3) mg/dL AST 55 (17-59) U/L ALT 39 (6-50) U/L Alkaline Phosphatase 66 (38-126) U/L Troponin I 0.015 (0.000-0.034) ng/mL Total Protein 7.1 (6.3-8.2) g/dL Albumin 4.4 (3.5-5.1) g/dL Lipase 231 (23-300) U/L <Nehal Hernandez MD - Last Filed: 09/01/24 05:42> Imaging Data Radiologist's impression: ITS Impressions Chest X-Ray 08/31/24 23:08 IMPRESSION: No acute cardiopulmonary pathology. <Karen Santacruz PA-C - Last Filed: 09/01/24 01:16> ECG Data EKG #1: ECG completion date: 08/31/24 <Karen Santacruz PA-C - Last Filed: 09/01/24 01:16> EKG Interpretation: normal rate, sinus rhythm, no ST changes and normal QT <Karen Santacruz PA-C - Last Filed: 09/01/24 01:16> Critical Care Time Critical Care Time Critical Care Time: No <Karen Santacruz PA-C - Last Filed: 09/01/24 01:16> Discharge Plan Discharge Clinical Impression: Chest pain Qualifiers: Chest pain type: unspecified Qualified Code(s): R07.9 - Chest pain, unspecified <JUSTIN Gilliland Last Filed: 09/01/24 01:16> Patient Disposition: Still a Patient <JUSTIN Gilliland Last Filed: 09/01/24 01:16> Condition: Stable <Karen Santacruz PA-C - Last Filed: 09/01/24 01:16> Quality HEART score for chest pain patients History: highly suspicioius <Karen Santacruz PA-C - Last Filed: 09/01/24 01:16> ECG: normal <Karen Santacruz PA-C - Last Filed: 09/01/24 01:16> Age: > or = to 65 years <Karen Santacruz PA-C - Last Filed: 09/01/24 01:16> Risk factors: > or = to 3 risk factors of atherosclerotic disease <Karen Santacruz PA-C - Last Filed: 09/01/24 01:16> Troponin: < or = to 1x normal limit <Karen Santacruz PA-C - Last Filed: 09/01/24 01:16> Heart score: 6 <Karen Santacruz PA-C - Last Filed: 09/01/24 01:16> 6 <Nehal Hernandez MD - Last Filed: 09/01/24 05:42>
--- OUTSIDE RECORDS SUMMARY | 2024-09-01 01:08 | XMS_ITS ---
Author Organization [facility] [id number] [place] [id number] Care Team Providers Care Railroad Dispatcher Name Role Phone Octavio oLbo MD Unavailable [phone] Juani Jeff DO Primary Care Provider + [...] placement 09/15/2019 Coronary artery disease invo lving [place] coronary artery of [place] heart without angina pectoris 09/15/2019 HTN (hypertension), [...]
--- OUTSIDE RECORDS SUMMARY | 2024-09-01 01:08 | XMS_ITS | Clinical Summary ---
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 Gender Identity Male 06/21/2019 3:55 PM CDT Sexual Orientation Straight 06/21/2019 3: 55 PM CDT 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 on file Not [...] 02/09/2025 02/10/2024 Medical Devices Implanted Type Area Telephone Maintainer Device Identifier Shelf Expiration Date Model / Serial / Lot [employer] [id number] Surelock 1.4mm Preload Flexible Boat Dispatcher 2 [place] Suture Uhmwpe - [id number] Implanted:Qty: 4 on 09/09/2020 by Octavio Lobo MD at [facility] Right: Shoulder [employer] 06/12/2022 [id number] / / [id number] [employer] Inc [id number] Surelock 1.4mm Preload Flexible Boat Dispatcher 2 [place] Suture Uhmwpe - [id number] Implanted:Qty: 1 on 09/09/2020 by Octavio Lobo MD at [facility] Right: Shoulder [employer] 01/24/2023 [id number] / / [id number] Allosource [id number] Allomend 4x4cm Nonmesh 2-3.3mm Xthick Graft Soft Tissue Acellular - [id number] Implanted:Qty: 1 on 09/09/2020 by Octavio Lobo MD at [facility] Right: Shoulder [employer] 06/13/2022 [id number] / / [id number] [employer] Inc [id number] Quattro X 5.5mm 1 Row Preload Taper Thread 2 Strand 2 [place] - [id number] Implanted:Qty: 1 on 09/09/2020 by Octavio Lobo MD at [facility] Right: Shoulder [employer] 01/30/2025 [id number] / / [id number] [facility] Medical Inc -[id number] Quattro 7mm 14mm [place] Biceps Proximal Screw Interference Sterile - [id number] Implanted:Qty: 1 on 09/09/2020 by Octavio Lobo MD at [facility] Right: Shoulder [employer] 12/24/2023 -[id number] / / [id number] Insurance [facility] MEDICARE MEDICARE [facility] [place] [address] MEDICARE [facility] Care Teams Test Developer Relationship Specialty Start Date End Date Juani Jeff DO [address] [place] [address] [place] [address] PCP - General Family Medicine 08/25/23 Octavio Lobo MD Surgeon Orthopedic Surgery 09/09/20
--- OUTSIDE RECORDS SUMMARY | 2024-09-01 01:08 | XMS_ITS | Clinical Summary ---
Author Organization [facility] Address [address] [place] [address] Care Team Providers Care Behavioral Health Director Name Role Phone Vianca Treviño RN Unavailable [phone] Source Comments [facility],non-owned Affiliates and Associated Physician Practices is amultiple site organization consisting of ambulatory clinics and hospital sitesin [place], [place], [place] and [place]. This disclosure is being madepursuant to the Care Everywhere program and may not contain all information available regarding this patient. 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 Gender Identity Male 06/23/2022 12:24 PM CDT Sexual Orientation Straight 06/23/2022 12 :24 PM CDT Last Filed Vital Signs Vital Sign Reading Time Taken Comments Blood Pressure 124/84 02/06/2021 11:08 AM MICROSOFT ARCHITECT Pulse 81 02/06/2021 11:08 AM MICROSOFT ARCHITECT Temperature 36.9 C (98.4 F) 02/06/2021 11:08 AM MICROSOFT ARCHITECT Respiratory Rate 17 02/06/2021 11:08 AM MICROSOFT ARCHITECT Oxygen Saturation 97% 02/06/2021 11:08 AM MICROSOFT ARCHITECT Inhaled Oxygen Concentration - - Weight 87.1 kg (192 lb) 02/06/2021 11:08 AM MICROSOFT ARCHITECT Height 185.4 cm (6' 1) 02/06/2021 11:08 AM MICROSOFT ARCHITECT Body Mass Index 25.33 02/06/2021 11:08 AM MICROSOFT ARCHITECT Plan of Treatment Health Maintenance Due Date [...] this topic Medical Devices Implanted Type Area Helicopter Mechanic Device Identifier Shelf Expiration Date Model / Serial / Lot Patch Juan Eptfe 1 X 9 X .5mm Implanted:Qty: 1 on 01/01/2015 by Salvador Cunningham MD at [facility] Right: [employer] 10/19/2017 [id number] / / [id number] Procedures Procedure Name Priority Date/Time Associated Diagnosis Comments ENDOSCOPY, COLON, SCREENING Routine 02/05/2017 1:24 PM MICROSOFT ARCHITECT BASIC METABOLIC PANEL (CALCIUM TOTAL) Routine 09/20/2015 5:00 AM CDT from Last 3 Months or Most Recently Relevant to Health Maintenance Results * ENDOSCOPY, COLON, SCREENING (02/05/2017 1:24 PM MICROSOFT ARCHITECT) Report Endoscopy POC _ Patient Name: Bipin [...] previously scheduled. Procedure Code(s): --- Professional --- 94128, Colonoscopy, flexible; with removal of tumor(s), polyp(s), or other lesion(s) by snare technique 84303, 59, Colonoscopy, flexible; with removal of tumor(s), polyp(s), or other lesion(s) by hot biopsy forceps --- Technical --- 27654, Colonoscopy, flexible; with removal of tumor(s), polyp(s), or other lesion(s) by snare technique 56509, 59, Colonoscopy, flexible; with removal of tumor(s), [...] neoplasm of sigmoid colon CPT copyright 2015 [employer]. All rights reserved. The codes documented in this report are preliminary and upon lining cleaner review may be revised to meet current compliance requirements. Dr. Angel Zapata MD ___ Angel Zapata MD 02/05/2017 2:55:01 PM This report has been signed electronically. Number of Addenda: 0 Note Initiated On: 02/05/2017 1:24 PM [facility] ENDOSCOPY 02/05/2017 1:24 PM MICROSOFT ARCHITECT Angel Zapata MD GI PROCEDURE ORDERABLES William yi Result - Final [facility] [place] [address] * (ABNORMAL) BASIC METABOLIC PANEL (CALCIUM TOTAL) (09/20/2015 5:00 AM CDT) BUN 18 7 - 26 mg/dL [facility] Creatinine 1.0 0.6 - 1.2 mg/dL [facility] Sodium 137 136 - 145 mmol/L [facility] Potassium 4.4 3.5 - 4.5 mmol/L [facility] Chloride 103 98 - 107 mmol/L [facility] CO2 23 22 - 29 mmol/L [facility] Glucose 106 70 - 115 mg/dL [facility] Calcium 8.3(L) 8.4 - 10.2 mg/dL [facility] Anion Gap 15 8 - 18 [facility] BUN/Creatinine Ratio 18 7 - 23 [facility] Osmolality Calculated 286 270 - 300 mOsm/kg [facility] eGFR >60 >60 mL/min/1.7 3 m2 [facility] Blood specimen (specimen) BLOOD SPECIMEN / Unknown 09/20/2015 5:00 AM CDT 09/20/2015 5:15 AM CDT Tae Dave MD LAB - CHEMISTRY ORDERABLES Myriam l Result [address] [phone] from Last 3 Months or Most Recently Relevant to Health Maintenance Insurance [facility] Advance Directives * Full Code (Latest Code Status on File) Date Activated Date Inactivated Comments 01/01/2015 7:52 PM 01/02/2015 11:49 AM Care Teams Behavioral Health Director Relationship Specialty Start Date End Date Vianca Treviño RN Pet Sitting 01/02/15
--- OUTSIDE RECORDS SUMMARY | 2024-09-01 01:08 | XMS_ITS | Referral Summary ---
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 Gender Identity Male 06/21/2019 3:55 PM CDT Sexual Orientation Straight 06/21/2019 3: 55 PM CDT 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 Not [...] on file Medical Devices Implanted Type Area Upholstery Handler Device Identifier Shelf Expiration Date Model / Serial / Lot [employer] [id number] Surelock 1.4mm Preload Flexible Infectious Waste Technician 2 [place] Suture Uhmwpe - [id number] Implanted:Qty: 4 on 09/09/2020 by Octavio Lobo MD at [facility] Right: Shoulder [employer] 06/12/2022 CM-9614F / / [id number] [employer] [id number] Surelock 1.4mm Preload Flexible Infectious Waste Technician 2 [place] Suture Uhmwpe - [id number] Implanted:Qty: 1 on 09/09/2020 by Octavio Lobo MD at [facility] Right: Shoulder [employer] 01/24/2023 CM-9614F / / [id number] Allosource [id number] Allomend 4x4cm Nonmesh 2-3.3mm Xthick Graft Soft Tissue Acellular - [id number] Implanted:Qty: 1 on 09/09/2020 by Octavio Lobo MD at [facility] Right: Shoulder [employer] 06/13/2022 [id number] / / [id number] [employer] Cm-9255x3 Quattro X 5.5mm 1 Row Preload Taper Thread 2 Strand 2 [place] - [id number] Implanted:Qty: 1 on 09/09/2020 by Octavio Lobo MD at [facility] Right: Shoulder [employer] 01/30/2025 [id number] / / [id number] [employer] [id number] Quattro 7mm 14mm [place] Biceps Proximal Screw Interference Sterile - [id number] Implanted:Qty: 1 on 09/09/2020 by Octavio Lobo MD at [facility] Right: Shoulder [employer] 12/24/2023 [id number] / / [id number] [place] [address] [facility] FEDERAL MEDICARE MEDICARE [facility] FEDERAL MEDICARE [facility] FEDERAL Member Subscriber Plan / Payer (Ef fective 2016-Present) Name:BIPIN RÍOS Relation to Subscriber:Self Name:Bipin Ríos Payer ID:[id number] (NAIC) Group ID:[id number] Type:BC ALLIANCE Address: [facility] [id number] [place] [id number] Care Teams Screen Stretcher Relationship Specialty Start Date End Date Juani Jeff DO [address] [place] [address] [address] PCP - General Family Medicine 08/25/23 Octavio Lobo MD Surgeon Orthopedic Surgery 09/09/20
--- NOTE | 2024-09-01 01:13 | ECG_ITS ---
Test Date: 2024-09-01 01:20:41 Measurements Intervals [place] Rate: 65 P: 37 GA: 175 QRS: 32 QRSD: 94 T: 32 QT: 410 QTc: 428 Interpretive Statements SINUS RHYTHM POSSIBLE RIGHT VENTRICULAR CONDUCTION DELAY [RSR (QR) IN V1/V2] Compared to ECG 08/31/2024 22:01:03 No significant changes Electronically Signed On 09-01-2024 07:08:00 CDT by Shan Burleson M.D.
[2024-09-01 01:57] LABS: Troponin I 0.013 ng/mL (0.000-0.034)
--- NOTE | 2024-09-01 02:15 | PM.IMHP ---
H&P: HPI History of Present Illness Date/Time: 09/01/24 02:15 Chief Complaint: Chest pain. Narrative: This is a pleasant 69-year-old male with history of inferior ST-elevation myocardial infarction status post stent to the proximal right coronary artery in May 2019, carotid artery stenosis status post right carotid endarterectomy, hypertension, dyslipidemia, sleep apnea on CPAP, and chronic lymphocytic leukemia who presented to the emergency department via private vehicle with complaints of chest pain. He awoke from sleep yesterday at about 04:00 and was ?just not feeling right? with symptoms to include nausea, sweats, and mild shortness of breath. Later in the morning he mode the lawn and had an episode of substernal chest tightness accompanied by nausea and shortness of breath. He went inside and rested for several hours before finishing the lawn later in the afternoon when it was cooler outside. There was no recurrence of chest discomfort or shortness of breath at that time however later on in the evening he once again was just not feeling right and he decided to come in for evaluation. Prior to yesterday he has not had any episodes of chest discomfort and he is quite active. At the time my evaluation he is asymptomatic. He denies syncope, near syncope, pleuritic pain, epigastric and abdominal pain, bloating, belching, vomiting, lower extremity edema, lymphadenopathy, fatigue, bruising, and weight loss. In the ED: Blood pressure is 163/93 on arrival. The remainder of his vital signs were stable. CBC was significant for a WBC count of 31.3 which is near his baseline with a differential of 84% lymphocytes and 14% neutrophils. Smudge cells were present and have been noted on prior peripheral smears. CMP was pretty unremarkable with the only outliers being a sodium of 135. Troponin has been negative thus far. EKG showed a sinus rhythm concerning ST segment changes. Chest x-ray showed no acute findings. He was given aspirin 324 mg and is being admitted in this setting for close monitoring and Cardiology consultation. Review of Systems Review of Systems: 12 systems were reviewed and are negative except for as per HPI. [facility] Past Medical History Medical History (Updated 09/01/24 @ 06:06 by Cathy Valentino PA-C) Obstructive sleep apnea on CPAP Chronic lymphocytic leukemia Dyslipidemia ST elevation myocardial infarction (STEMI) of inferior wall (05/2019) Coronary artery disease Carotid arterial disease Hypertension Surgical History Surgical History (Updated 09/01/24 @ 06:01 by Cathy Valentino PA-C) History of coronary artery stent placement (05/2019) History of cardiac catheterization History of right-sided carotid endarterectomy Family History Family History Unknown No problems noted. Father Lung cancer Mother Bladder cancer Social History Social History (Updated 09/01/24 @ 06:02 by Cathy Valentino PA-C) Social History: Surrogate medical decision maker: Viki Artis, spouse. Code status: Full code. Smoking status: Never smoker Alcohol intake: current Drinks per week: 21 Substance use: current Substance use type: marijuana Other substance usage details: occasional Do You Feel Safe in your Home?: Yes Lack of Transportation: No Lack of Food: Never True Current Housing: I Have Housing Concerned About Future Housing: No Difficulty Paying Gas/Electric Bills: No Difficulty Paying for Meds: No Currently Unemployed: No Education: Bachelor's Degree Difficulty w/ Childcare or Family Care: No Spiritual care concerns: No Agree to blood products: Yes Meds Home Medications and Allergies Home Medications ?Medication ?Instructions ?Recorded ?Confirmed ?Type aspirin 81 mg chewable tablet 81 mg PO DAILY 06/07/19 09/01/24 History atorvastatin 80 mg tablet 80 mg PO DAILY #30 tabs 06/09/19 09/01/24 Rx lisinopril 5 mg tablet 5 mg PO QAM #30 tabs 06/09/19 09/01/24 Rx metoprolol succinate 25 mg 25 mg PO DAILY #30 tabs 06/09/19 09/01/24 Rx tablet,extended release 24 hr nitroglycerin 0.4 mg sublingual 0.4 mg sublingual DIRECTED PRN 07/16/21 09/01/24 Rx tablet chest pain #25 tabs CPAP Equipment #1 ea 05/20/23 09/01/24 Rx Travel CPAP Rx #1 ea 05/20/23 09/01/24 Rx Allergies Allergy/AdvReac Type Severity Reaction Status Date / Time No Known Allergies Allergy Verified 08/31/24 22:10 Vital Signs Vital Signs - 24 hr 08/31/24 22:05 Temperature 97.3 F L Pulse Rate 77 Respiratory Rate 18 Blood Pressure 163/93 H Pulse Oximetry 99 Oxygen Delivery Room Air Exam Narrative: General: Well-developed, nontoxic-appearing male in the semi-[place] position in bed in no distress. Weight: 79 kg. BMI: 23.0. HEENT: PERRL, EOMI. Sclera anicteric. Oral mucosa moist. Oropharynx clear. Neck: Supple. Respiratory: Lungs are clear to auscultation bilaterally. Cardiovascular: Regular rate and rhythm with S1-S2. Gastrointestinal: Abdomen is soft, nontender, and nondistended with positive bowel sounds. Skin: Warm and dry. No rash or lesions on limited exam. Extremities: No cyanosis, clubbing, or edema. Radial and pedal pulses intact. Neurological: Alert. Cranial nerves grossly intact. No gross focal deficits to casual conversation. Psychiatric: Pleasant and cooperative with normal mood and affect. Judgment and insight intact. H&P: Results Labs Labs: Short CBC 08/31/24 Range/Units 22:23 WBC 31.3 H (4.5-10.0) K/mm3 Hgb 13.3 L (14.0-18.0) g/dL Hct 41.2 L (42.0-52.0) % Plt Count 149 L (150-375) k/mm3 BMP 08/31/24 22:23 Sodium 135 L Potassium 4.4 Chloride 100 Carbon Dioxide 29 BUN 18 Creatinine 0.86 Glucose 100 Calcium 9.2 Cardiac Enzymes 08/31/24 09/01/24 Range/Units 22:23 01:18 Troponin I 0.015 0.013 (0.000-0.034) ng/mL Liver Function 08/31/24 Range/Units 22:23 Total Bilirubin 1.3 (0.2-1.3) mg/dL AST 55 (17-59) U/L ALT 39 (6-50) U/L Alkaline Phosphatase 66 (38-126) U/L Albumin 4.4 (3.5-5.1) g/dL Impressions Chest X-Ray 08/31/24 23:08 IMPRESSION: No acute cardiopulmonary pathology. Assessment and Plan Assessment and plan (1) Chest pain: Qualifiers: Chest pain type: unspecified Qualified Code(s): R07.9 - Chest pain, unspecified Code(s): R07.9 - Chest pain, unspecified Status: Acute (2) Coronary artery disease: Code(s): I25.10 - Atherosclerotic heart disease of [place] coronary artery without angina pectoris Status: Acute (3) Dyslipidemia: Code(s): E78.5 - Hyperlipidemia, unspecified Status: Acute (4) Hypertension: Qualifiers: Hypertension type: essential hypertension Qualified Code(s): I10 - Essential (primary) hypertension Code(s): I10 - Essential (primary) hypertension Status: Acute (5) Chronic lymphocytic leukemia: Code(s): C91.10 - Chronic lymphocytic leukemia of B-cell type not having achieved remission Status: Acute (6) Obstructive sleep apnea on CPAP: Code(s): G47.33 - Obstructive sleep apnea (adult) (pediatric) Status: Acute Plan The patient presented to the emergency department for evaluation of chest discomfort upon waking yesterday morning and while mowing later in the afternoon as detailed in HPI. Labs, imaging, EKG, and all reports were personally reviewed. Initial troponin was negative an EKG did not show any acute ST segment changes. Given his cardiac history and what sounds like exertional angina, he is being admitted to the IMU for close monitoring. Cardiology has been consulted. He will be NPO after midnight for possible stress test or even cardiac catheterization later today. Continue aspirin, statin, and beta-mely. Blood pressure on arrival was 163/93 but has improved. For now will continue with his current dose of lisinopril and metoprolol and monitor closely. CLL appears to be stable with a WBC count and differential in his normal range. Some smudge cells were seen on peripheral smear which have been noted in the past. CPAP will be provided for the patient to use while hospitalized. His home medications will be reviewed and resumed as appropriate. Findings and treatment plan were discussed with the patient. Questions were solicited and answered to satisfaction. The patient's medical management will be taken over by the hospitalist team in a.m. Quality VTE Prophylaxis VTE prophylaxis: mechanical ordered The patient has been admitted under observation status. Hospitalist MIPS Advance Care Plan I have confirmed that the patient's Advanced Care Plan is present, code status is documented, or surrogate decision maker is listed in patient medical record.: Yes Medication Reconciliation I have utilized all available resources to obtain, update and review the patients current medications (includes all prescriptions, OTC, herbals, cannabis, and nutritional supplements).: Yes
--- NOTE | 2024-09-01 03:35 | ADMGEN ---
This patient, Bipin Artis, was admitted to IMU Room 212-01. Patient/family oriented to hospital policies and general routines including ID bracelet, bed and alarms, visiting hours, pain management, procedures, bathroom and other care routines, personal items, smoking policy, room service/diet, and visiting hours. Information on how to activate the Rapid Response Team has been discussed. Patient/Family are encouraged to report perceived risks to care and to ask questions if they do not understand what they are told or what they should do.
[2024-09-01 04:49] LABS: Troponin I < 0.012 ng/mL (0.000-0.034)
--- NOTE | 2024-09-01 07:51 | P.CONCA_ITS ---
Assessment and Plan Assessment and plan (1) Chest pain: Qualifiers: Chest pain type: unspecified Qualified Code(s): R07.9 - Chest pain, unspecified Code(s): R07.9 - Chest pain, unspecified Status: Acute (2) Hypertension: Qualifiers: Hypertension type: essential hypertension Qualified Code(s): I10 - Essential (primary) hypertension Code(s): I10 - Essential (primary) hypertension Status: Acute Plan One episode of chest tightness with exertion-resolved with rest; most likely stable angina at pain occurred with exertion and resolved with rest CAD, inferior STEMI status post PCI to proximal RCA in May 2019, nonobstructive CAD with 30% diffuse stenosis in proximal LAD Hypertension-not well controlled Hyperlipidemia Carotid artery stenosis status [place] [address] secondary to CLL Plan: Troponin x3 negative, EKG shows sinus rhythm with early repolarization change, patient does not have any recurrence of chest pressure/pain. ACS ruled out. Recommend stress test as outpatient Continue Aspirin 81 mg daily, Atorvastatin 80 mg daily Continue metoprolol, lisinopril at home dose TTE today. Okay to discharge home from cardiac standpoint if patient remains chest pain-free and TTE is unremarkable Sublingual nitro 0.4 mgx3 Q5 minutes prn for chest pain Monitor on telemetry Check and replace electrolytes to keep potassium greater than 4 and magnesium greater than 2 Cardiology will sign off. Please call us with any questions. History of Present Illness History of Present Illness Consult date/time: 09/01/24 07:51 Reason For Visit: Chest pain Narrative: 69-year-old male with history of CAD, inferior STEMI in 2020 status post PCI to proximal RCA in 2019 with 3.5 x 13 mm Biotronik sirolimus eluting stent, nonobstructive CAD with 30-40% diffuse stenosis in proximal to mid LAD, hypertension, hyperlipidemia, carotid artery stenosis status post right carotid endarterectomy, obstructive sleep apnea on CPAP, CLL presents with chief complaints of chest pain. He was woken from his sleep yesterday at about 4:00 a.m. with symptoms of nausea, sweats, mild shortness of breath. After a while the symptoms resolved. Later in the morning he went to mow his lawn when he had an episode of substernal chest tightness. He stopped what he was doing and rested for several hours for his chest tightness to resolve and then finished mowing his lawn in the evening. He did not have recurrence of chest pain or shortness of breath. However later in the evening he was just not feeling right and he decided to come in for evaluation. He states that did not have similar chest pain prior to this episode. He had an [place] in 2019 at which time his chest pain was different, more severe, and radiated all the way to the back. No dizziness, lightheadedness, palpitations, presyncope, syncope, leg swelling, recent weight gain, orthopnea, PND. He was hypertensive in the ER with blood pressure of 163/93 mm Hg. Workup: WBC: 31.3 (patient has history of CLL) Troponin: Negative x3 EKG: Sinus rhythm, early repolarization Chest x-ray: No acute cardiopulmonary pathology Prior cardiac workup: Cardiac catheterization 2019:CONCLUSIONS: 1. Severe single-vessel CAD -99% stenosis proximal RCA ( infarct-related vessel); 30-40% diffuse stenosis proximal-mid LAD. 2. LVEF about 65% with mild inferior wall hypokinesis; LVEDP 18 mmHg. 3. Primary PCI-PTCA/ placement of a 3.5 x 13 mm Biotronik sirolimus eluting stent in the proximal RCA with good angiographic results. Review of Systems 2 Review of Systems: A complete review of systems was performed and pertinent positives are reported in HPI [facility] Past Medical History Medical History (Updated 09/01/24 @ 06:06 by Cathy Valentino PA-C) Obstructive sleep apnea on CPAP Chronic lymphocytic leukemia Dyslipidemia ST elevation myocardial infarction (STEMI) of inferior wall (05/2019) Coronary artery disease Carotid arterial disease Hypertension Surgical History Surgical History (Updated 09/01/24 @ 06:01 by Cathy Valentino PA-C) History of coronary artery stent placement (05/2019) History of cardiac catheterization History of right-sided carotid endarterectomy Family History Family History Unknown No problems noted. Father Lung cancer Mother Bladder cancer Social History Social History (Updated 09/01/24 @ 06:02 by Cathy Valentino PA-C) Social History: Surrogate medical decision maker: Viki Artis, spouse. Code status: Full code. Smoking status: Never smoker Alcohol intake: current Drinks per week: 21 Substance use: current Substance use type: marijuana Other substance usage details: occasional Do You Feel Safe in your Home?: Yes Lack of Transportation: No Lack of Food: Never True Current Housing: I Have Housing Concerned About Future Housing: No Difficulty Paying Gas/Electric Bills: No Difficulty Paying for Meds: No Currently Unemployed: No Education: Bachelor's Degree Difficulty w/ Childcare or Family Care: No Spiritual care concerns: No Agree to blood products: Yes Meds Home Medications and Allergies Home Medications ?Medication ?Instructions ?Recorded ?Confirmed ?Type aspirin 81 mg chewable tablet 81 mg PO DAILY 06/07/19 09/01/24 History atorvastatin 80 mg tablet 80 mg PO DAILY #30 tabs 06/09/19 09/01/24 Rx lisinopril 5 mg tablet 5 mg PO QAM #30 tabs 06/09/19 09/01/24 Rx metoprolol succinate 25 mg 25 mg PO DAILY #30 tabs 06/09/19 09/01/24 Rx tablet,extended release 24 hr nitroglycerin 0.4 mg sublingual 0.4 mg sublingual DIRECTED PRN 07/16/21 09/01/24 Rx tablet chest pain #25 tabs CPAP Equipment #1 ea 05/20/23 09/01/24 Rx Travel CPAP Rx #1 ea 05/20/23 09/01/24 Rx Allergies Allergy/AdvReac Type Severity Reaction Status Date / Time No Known Allergies Allergy Verified 08/31/24 22:10 Vital Signs Vital Signs - 24 hr 08/31/24 22:05 09/01/24 00:26 09/01/24 00:31 Temperature 36.3 C L Pulse Rate 77 71 70 Respiratory Rate 18 17 17 Blood Pressure 163/93 H 149/98 H 126/78 Pulse Oximetry 99 99 93 Oxygen Delivery Room Air 09/01/24 01:00 09/01/24 01:01 09/01/24 01:31 Temperature Pulse Rate 67 69 67 Respiratory Rate 19 16 Blood Pressure 143/91 H 128/81 Pulse Oximetry 98 94 Oxygen Delivery 09/01/24 02:02 09/01/24 02:31 09/01/24 03:35 Temperature 36.5 C Pulse Rate 76 74 73 Respiratory Rate 14 18 16 Blood Pressure 134/82 135/86 152/76 H Pulse Oximetry 99 94 100 Oxygen Delivery 09/01/24 04:00 09/01/24 06:00 Temperature Pulse Rate 63 65 Respiratory Rate Blood Pressure Pulse Oximetry Oxygen Delivery Exam 2 Narrative: General: Alert oriented x3, no acute distress Neck: Supple, no JVD Chest: Bilaterally clear to auscultation, no rales or rhonchi Cardiac: S1, S2 +, regular rate, regular rhythm, no murmurs or rubs Extremities: No pedal edema, no skin rash Neurologic: Alert and oriented x3, no focal neurological deficits Results Labs and Meds 08/31/24 22:23 08/31/24 22: Lab results: Cardiac Enzymes 08/31/24 09/01/24 09/01/24 Range/Units 22:23 01:18 04:15 AST 55 (17-59) U/L Troponin I 0.015 0.013 < 0.012 (0.000-0.034) ng/mL Coagulation 08/31/24 Range/Units 22:23 PT 12.6 (11.1-14.7) Seconds APTT 22.6 (22.3-36.8) Seconds CBC 08/31/24 Range/Units 22:23 WBC 31.3 H (4.5-10.0) K/mm3 RBC 4.49 L (4.6-6.20) M/mm3 Hgb 13.3 L (14.0-18.0) g/dL Hct 41.2 L (42.0-52.0) % Plt Count 149 L (150-375) k/mm3 Lymph # (Auto) Not Reportable [place] # (Auto) Not Reportable Eos # (Auto) Not Reportable Baso # (Auto) Not Reportable Comprehensive Metabolic Panel 08/31/24 Range/Units 22:23 Sodium 135 L (137-145) mmol/L Potassium 4.4 (3.4-5.0) mmol/L Chloride 100 (98-107) mmol/L Carbon Dioxide 29 (22-30) mmol/L BUN 18 (9-20) mg/dL Creatinine 0.86 (0.7-1.3) mg/dL Glucose 100 (65-110) mg/dL Calcium 9.2 (8.4-10.2) mg/dL AST 55 (17-59) U/L ALT 39 (6-50) U/L Alkaline Phosphatase 66 (38-126) U/L Total Protein 7.1 (6.3-8.2) g/dL Albumin 4.4 (3.5-5.1) g/dL Intake and Output 08/31/24 08/31/24 09/01/24 15:59 23:59 07:59 Intake Total 380 Output Total 500 Balance -120 Intake: Oral 380 Output: Urine 500 Other: # Unmeasured Voids 2 Patient Weight 09/01/24 23:59 Weight 79 kg
--- NOTE | 2024-09-01 07:59 | PM.EVENT ---
Event Note Event Note Event Note: Patient rest comfortably. Denies any chest pain. Describes the inciting event as a squeezing around his whole chest. Blood pressure currently mildly elevated however he has not taken his a.m. antihypertensives. Reports when he visits his doctors in the outpatient setting his blood pressures are ?good?. Troponin negative x3. Pending cardiology consultation. He has been compliant with aspirin, antihypertensives and atorvastatin at home.
[2024-09-01] MEDS: ASPIRIN 81 MG CHEWABLE TABLET PO (08:39)
[2024-09-01] MEDS: ATORVASTATIN 40 MG TABLET 80 MG PO (08:39)
[2024-09-02] VITALS (11 sets, daily range): BP systolic 125–165; BP diastolic 77–97; PULSE 66–92; RESP 16–18; TEMP 36.4–36.6; O2SAT 95–100
[2024-09-02] MEDS: ASPIRIN 81 MG CHEWABLE TABLET PO (09:39)
--- NOTE | 2024-09-02 11:28 | PM.DS ---
DS: Admitting Diagnosis Discharge Date 09/02/2024 Admitting Diagnosis Chest pain DS: Discharge Diagnosis Discharge Diagnosis (1) Chest pain: Qualifiers: Chest pain type: unspecified Qualified Code(s): R07.9 - Chest pain, unspecified Code(s): R07.9 - Chest pain, unspecified Status: Acute (2) Coronary artery disease: Code(s): I25.10 - Atherosclerotic heart disease of [place] coronary artery without angina pectoris Status: Acute DS: Summary Hospital Course Hospital Course: Discharged home in stable condition on 09/02/2024. Discussed results of the echocardiogram and risk versus benefits and patient would like to follow-up in the outpatient setting as well as have a stress test done in the outpatient setting. He has been compliant with his medications and will continue to do so. EKG without new changes. Troponin negative x3. The patient was full code during the admission Time Spent with Patient Time attestation: Total time spent providing and/or coordinating discharge services: Time spent: Greater than 30 minutes Exam Const: General: comfortable and no acute distress Eyes: Pupils: Equal, round and reactive pupils present Neck: Neck: supple Resp: Effort & Inspection: normal respiratory effort Auscultation: clear to auscultation bilaterally Cardio: Rate: regular rate Rhythm: regular rhythm GI: GI Palp: Yes Soft to palpation Extrem: General: no edema Discharge Plan Discharge Attending physician on discharge: Lizette Castillo Consulting providers: Phillip Reyes Discharging Clinician: Lizette Castillo Patient Disposition: Home Activity: june shower Diet: heart healthy Patient Instructions: Antibiotic Form Patient Language: Romanian Stand Alone Forms: General Discharge Information Follow-up/Referrals: Juani Jeff DO [Primary Care Provider] - Shan Burleson MD [Physician] - Discharge Medications: Continued nitroglycerin 0.4 mg tablet, sublingual 0.4 mg SUBLINGUAL DIRECTED PRN (Reason: chest pain) Qty: 25 3RF Patient Comments: has not needed to take it but has it Rx Instructions: One tablet sublingual Q 5 minutes x3 doses p.r.n. chest pain If no relief call 911 (DME) CPAP Equipment See Rx Instructions .Route .MEDSUPPLY Qty: 1 0RF Patient Comments: does not wish to use while here Rx Instructions: Rx: Resmed AirSense 11 CPAP at 11 cm H2O. CPAP filters/tubing. Needs mask re-fit. Dx: G47.33 DME: [facility] Length of need : 99+ months *Please link me to patient's CPAP machine through [facility]* (DME) Travel CPAP Rx See Rx Instructions .Route .MEDSUPPLY Qty: 1 0RF Rx Instructions: Rx: Resmed AirMini Travel CPAP and supplies; 11 cm H2O aspirin 81 mg Tablet,Chewable 81 mg PO DAILY lisinopril 5 mg Tablet 5 mg PO QAM Qty: 30 3RF metoprolol succinate 25 mg tablet extended release 24 hr 25 mg PO DAILY Qty: 30 3RF atorvastatin 80 mg tablet 80 mg PO DAILY Qty: 30 3RF Date of admission: 09/01/24 01:10 Primary Care Provider: Juani Jeff Admitting Provider: Ariel Miranda Attending physician on admission: Ariel Miranda Condition: Stable Hospitalist MIPS Heart Failure (Exclusion) Patient has history of Heart Transplant or Left Ventricular Assistive Device?: No IF YES, STOP HERE Heart Failure (Qualifier) Patient has current or prior documentation of LVEF less than or equal to 40%, or mod/servere depressed LVSF?: No IF NO, STOP HERE
--- NOTE | 2024-09-02 11:53 | PM.PNCARD ---
Progress Note: A&P Assessment and Plan (1) Chest pain: Qualifiers: Chest pain type: unspecified Qualified Code(s): R07.9 - Chest pain, unspecified Code(s): R07.9 - Chest pain, unspecified Status: Acute Assessment and Plan: Somewhat atypical (2) Hypertension: Qualifiers: Hypertension type: essential hypertension Qualified Code(s): I10 - Essential (primary) hypertension Code(s): I10 - Essential (primary) hypertension Status: Acute Assessment and Plan: Above goal (3) Coronary artery disease: Code(s): I25.10 - Atherosclerotic heart disease of [place] coronary artery without angina pectoris Status: Acute Assessment and Plan: Previous [place]. Chest pain now resolved. (4) Carotid arterial disease: Qualifiers: Carotid artery disease type: stenosis Laterality: right Qualified Code(s): I65.21 - Occlusion and stenosis of right carotid artery Code(s): I77.9 - Disorder of arteries and arterioles, unspecified Status: Acute Plan One episode of chest tightness with exertion-resolved with rest; most likely stable angina at pain occurred with exertion and resolved with rest CAD, inferior STEMI status post PCI to proximal RCA in May 2019, nonobstructive CAD with 30% diffuse stenosis in proximal LAD Hypertension-not well controlled Hyperlipidemia Carotid artery stenosis status [place] [address] secondary to CLL Plan: Regarding his chest pain and known CAD, outpatient stress test and follow-up with Dr. Burleson Continue Aspirin 81 mg daily, Atorvastatin 80 mg daily Metoprolol is not resume for some reason. Will restart his home dose metoprolol succinate 25 mg daily and increase his lisinopril to 10 mg daily. Echo:. Left ventricular chamber dimension is normal. 3. Left ventricular systolic function is normal, estimated at 65-70. 4. There is mildly increased left ventricular wall thickness. 5. The left ventricular diastolic function is grade I diastolic dysfunction. 6. The basal inferolateral wall, and mid inferolateral wall are akinetic. 7. There is mild aortic valve regurgitation. 8. There is mild aortic valve calcification. 9. There is moderate aortic valve sclerosis. 10. There is mild mitral valve regurgitation. 11. The mitral valve has thickened leaflets. 12. There is mild pulmonic regurgitation. Sublingual nitro 0.4 mgx3 Q5 minutes prn for chest pain He should come back to the hospital if he has any recurrent chest pain. Okay for discharge Subjective Date/time seen: 09/02/24 11:53 Interval history: 69-year-old with known CAD came to hospital because of some atypical chest pain Date of service 09/02/2024: Feels okay. No chest pain, shortness of breath. Review of Systems Review of Systems: All systems reviewed & are unremarkable except as noted in HPI and below Constitutional: Constitutional: Denies body ache(s) ENT: Denies Normal hearing present Cardiovascular: Cardiovascular: Denies chest pain and Denies pedal edema Respiratory: Respiratory: Denies hemoptysis Gastrointestinal: Gastrointestinal: Denies abdominal pain Genitourinary: Genitourinary: Denies hematuria Exam Narrative: Awake alert oriented appears stated age Const: General: comfortable and no acute distress HENMT: Face/Nose/Sinus: Normal nares present Mouth: Yes moist mucous membranes Eyes: General: appearance normal, both eyes and all related structures Sclera: sclerae normal Neck: Neck: supple and no JVD Resp: Effort & Inspection: normal respiratory effort Auscultation: clear to auscultation bilaterally Cardio: Rate: regular rate Rhythm: regular rhythm GI: Inspection: non-distended GI Palp: Yes Soft to palpation Skin: General skin exam: normal color Neuro: Speech: normal speech Extrem: General: normal to inspection Psych: Mental Status: mental status grossly normal Affect: normal affect Objective Data Vital Signs Vital Signs: Vital Signs - 24 hr 09/01/24 12:00 09/01/24 12:00 09/01/24 14:00 Temperature Pulse Rate 74 73 Respiratory Rate Blood Pressure Pulse Oximetry 98 Oxygen Delivery Room Air 09/01/24 15:45 09/01/24 16:00 09/01/24 16:00 Temperature 36.6 C Pulse Rate 72 97 Respiratory Rate 20 Blood Pressure 153/91 H Pulse Oximetry 99 99 Oxygen Delivery Room Air 09/01/24 18:00 09/01/24 20:00 09/01/24 20:00 Temperature 36.2 C L Pulse Rate 75 72 76 Respiratory Rate 18 Blood Pressure 161/91 H Pulse Oximetry 99 Oxygen Delivery 09/01/24 21:00 09/01/24 22:00 09/01/24 23:20 Temperature Pulse Rate 72 75 78 Respiratory Rate 18 16 Blood Pressure Pulse Oximetry 99 100 Oxygen Delivery Room Air Room Air 09/02/24 00:00 09/02/24 00:00 09/02/24 02:00 Temperature 36.6 C Pulse Rate 78 69 82 Respiratory Rate 16 Blood Pressure 165/96 H Pulse Oximetry 100 Oxygen Delivery 09/02/24 04:00 09/02/24 04:00 09/02/24 04:19 Temperature 36.6 C Pulse Rate 75 66 75 Respiratory Rate 16 16 Blood Pressure 125/84 Pulse Oximetry 99 99 Oxygen Delivery Room Air 09/02/24 05:32 09/02/24 07:41 09/02/24 07:42 Temperature 36.4 C Pulse Rate 71 79 Respiratory Rate 18 Blood Pressure 150/97 H 149/77 H Pulse Oximetry 95 Oxygen Delivery 09/02/24 08:00 09/02/24 08:00 09/02/24 08:00 Temperature Pulse Rate 92 Respiratory Rate Blood Pressure Pulse Oximetry 95 95 Oxygen Delivery Room Air Room Air 09/02/24 10:00 09/02/24 11:14 Temperature 36.4 C Pulse Rate 86 76 Respiratory Rate 18 Blood Pressure 158/95 H Pulse Oximetry 99 Oxygen Delivery Intake/Output Intake/Output: Intake & Output 08/30/24 08/31/24 09/01/24 09/02/24 23:59 23:59 23:59 23:59 Intake Total 860 240 Output Total 875 1250 Balance -15 -1010 Meds/Results Medications: Active Medications Generic Name Dose Route Start Last Admin Trade Name Freq PRN Reason Stop Dose Admin Acetaminophen 650 mg 09/01/24 06:07 Acetaminophen 325 Mg Tablet PO Q6H PRN Mild Pain (1-3) or Fever Aspirin 81 mg 09/01/24 09:00 09/02/24 09:39 Aspirin 81 Mg Chewable Tablet PO 81 mg DAILY ROSEANNA Administration Atorvastatin Calcium 80 mg 09/02/24 21:00 Atorvastatin 40 Mg Tablet PO HS ROSEANNA Lisinopril 5 mg 09/01/24 09:00 09/02/24 09:39 Lisinopril 5 Mg Tablet PO 5 mg QAM ROSEANNA Administration Morphine Sulfate 2 mg 09/01/24 06:07 Morphine Sulfate (*Crx) 2 Mg/Ml Inj IV PUSH Q4H PRN Pain Rated 7-10 Nitroglycerin 0.4 mg 09/01/24 06:07 Nitroglycerin Sl 0.4 Mg Tablet SUBLINGUAL DIRECTED PRN chest pain Perflutren Lipid Microsphere 0 ml 09/01/24 08:33 Perflutren Lipid Microspheres 1.5 Ml Vial Diluted To 10 Ml Total Volume IV PUSH 09/04/24 08:33 ONCE PRN adequate visualization Protocol Radiology Results: ITS Impressions Chest X-Ray 08/31/24 23:08 IMPRESSION: No acute cardiopulmonary pathology.
== END 2024-09-02 12:23 | disposition home or self-care (01) ==
LOC: ANHED 09-01 01:13 → ANHIMU 09-02 11:28
PROVIDERS: Emergency Medicine; Admitting Provider Internal Medicine; Emergency Provider Physician Assistant; PCP Family Medicine; Visit Provider General Practice
DX: R07.9 Chest pain, unspecified (principal); R06.02 Shortness of breath; I65.21 Occlusion and stenosis of right carotid artery; I25.10 Atherosclerotic heart disease of native coronary artery without angina pectoris; I10 Essential (primary) hypertension; E78.5 Hyperlipidemia, unspecified; C91.10 Chronic lymphocytic leukemia of B-cell type not having achieved remission; I25.2 Old myocardial infarction; Z95.5 Presence of coronary angioplasty implant and graft; G47.33 Obstructive sleep apnea (adult) (pediatric); Z99.89 Dependence on other enabling machines and devices; Z79.82 Long term (current) use of aspirin
CPT/HCPCS: 36415; 71046; 80053; 83690; 84484; 85025; 85610; 85730; 93005; 93306; 99285; A9270; G0378

== ENCOUNTER 2025-01-08 09:56 | Emergency (ER) | payer MEDICARE, BC, SELFPAY ==
[2025-01-08 10:12] VITALS: BP 154/94; PULSE 76; RESP 16; TEMP 36.3; O2SAT 100
--- NOTE | 2025-01-08 10:31 | ED_ITS ---
HPI - Wound/Laceration General Chief Complaint: Extremity Problem,Nontraumatic Stated Complaint: Injured Harris Time Seen by Provider: 01/08/25 10:31 Source: patient and RN notes reviewed Mode of arrival: ambulatory Limitations: dementia History of Present Illness HPI narrative: 69-year-old male presents with concern for infected wound. Reports on Wednesday he lacerated his right lower leg on a corn stalk. Reports since then the wound has become more painful, red, swollen and had purulence drainage. Related Data Home Medications ?Medication ?Instructions ?Recorded ?Confirmed ?Last Taken ?Type aspirin 81 mg chewable tablet 81 mg PO DAILY 06/07/19 11/15/24 08/31/24 08:00 History 81 mg metoprolol succinate 50 mg mg PO 11/15/24 11/15/24 Unk nown History tablet,extended release 24 hr Allergies Allergy/AdvReac Type Severity Reaction Status Date / Time No Known Allergies Allergy Verified 01/08/25 10:13 Review of Systems Review of Systems: CONSTITUTIONAL: Denies malaise, chills, sweats, or fever. EYES: Denies redness, or discharge. ENT: Denies rhinorrhea, congestion, swollen lips, swollen tongue CARDIOVASCULAR: Denies chest pain, palpitations, or edema. RESPIRATORY: Denies cough or dyspnea. GASTROINTESTINAL: Denies abdominal pain, nausea, vomiting SKIN: Reports redness, swelling surrounding a wound on his right lower leg with purulence drainage. Denies vesicles, bullae, numbness, pain beyond proportion MUSCULOSKELETAL: Denies joint pain or myalgia. NEUROLOGIC: Denies headache. All systems reviewed & are unremarkable except as noted in HPI and below PMFSH Past Medical History Medical History Obstructive sleep apnea on CPAP Chronic lymphocytic leukemia Dyslipidemia ST elevation myocardial infarction (STEMI) of inferior wall (05/2019) Coronary artery disease Carotid arterial disease Hypertension Surgical History Surgical History History of coronary artery stent placement (05/2019) History of cardiac catheterization History of right-sided carotid endarterectomy Family History Family History Unknown No problems noted. Father Lung cancer Mother Bladder cancer Social History Social History Social History: Surrogate medical decision maker: Viki Artis, spouse. Code status: Full code. Smoking status: Never smoker Alcohol intake: current Drinks per week: 21 Substance use: current Substance use type: marijuana Other substance usage details: occasional Do You Feel Safe in your Home?: Yes Lack of Transportation: No Lack of Food: Never True Current Housing: I Have Housing Concerned About Future Housing: No Difficulty Paying Gas/Electric Bills: No Difficulty Paying for Meds: No Currently Unemployed: No Education: Bachelor's Degree Difficulty w/ Childcare or Family Care: No Spiritual care concerns: No Agree to blood products: Yes Comments At time of signature, agree with nursing past medical, surgical, social and family history. There is no relevant family history pertinent to the presenting complaint Exam Narrative: GENERAL: Well-appearing, well-nourished, and in no acute distress. HEAD: Normocephalic, atraumatic. EYES: PERRLA, conjunctivae clear ENT: Mucous membranes moist. NECK: Supple. No lymphadenopathy CHEST: Clear to auscultation. No respiratory distress. HEART: Regular rate and rhythm. SKIN: Warm, dry. Erythema, induration, tenderness, warmth with sharp margins noted surrounding the 2.5 cm laceration noted to the right anterior lower leg, small amount of purulent drainage noted in the mid wound. No vesicles, bullae, necrosis, ecchymosis, crepitus noted. NEURO: Alert and oriented x3. PSYCH: Normal mood and affect Course Course Emergency Course: Patient is aware of diagnosis, understands and agrees to treatment plan. Anticipatory guidance given. Patient agrees to follow-up as directed and is aware of reasons to seek care at the emergency department. Portions of this record may have been created with voice recognition software Level of Care: Express Care Visit Vital Signs Vital signs: Vital Signs Temperature 97.4 F L 01/08/25 10:12 Pulse Rate 76 01/08/25 10:12 Respiratory Rate 16 01/08/25 10:12 Blood Pressure 154/94 H 01/08/25 10:12 Pulse Oximetry 100 01/08/25 10:12 Temperature 97.4 F L 01/08/25 10:12 Pulse Rate 76 11/17/25 10:12 Respiratory Rate 16 01/08/25 10:12 Blood Pressure 154/94 H 01/08/25 10:12 Pulse Oximetry 100 01/08/25 10:12 Reviewed. Critical Care Time Critical Care Time Critical Care Time: No Discharge Plan Discharge Clinical Impression: Wound infection Patient Disposition: Home Condition: Stable Instructions: Antibiotic Form, Wound Infection (ED) Additional Instructions: Please follow up with your Primary Care Doctor within 48-72 hours - call for an appointment. Rest and elevate affected area; apply moist heat 3-4 times daily for 10-15 minutes. Take Motrin 600mg every 8 hours with food for pain. Please take Antibiotics as directed. If you experience any worsening redness, swelling, streaking (red lines), fever or chills please go to the ER Patient Language: Mont[place]errat[place] Prescriptions: New doxycycline monohydrate 100 mg tablet 100 mg PO BID 7 Days Qty: 14 0RF No Action nitroglycerin 0.4 mg tablet, sublingual 0.4 mg SUBLINGUAL DIRECTED PRN (Reason: chest pain) Qty: 25 3RF Patient Comments: has not needed to take it but has it Rx Instructions: One tablet sublingual Q 5 minutes x3 doses p.r.n. chest pain If no relief call 911 (DME) CPAP Equipment See Rx Instructions .Route .MEDSUPPLY Qty: 1 0RF Patient Comments: does not wish to use while here Rx Instructions: Rx: Resmed AirSense 11 CPAP at 11 cm H2O. CPAP filters/tubing. Needs mask re- fit. Dx: G47.33 DME: [place] Length of need : 99+ months *Please link me to patient's CPAP machine through [facility]* (DME) Travel CPAP Rx See Rx Instructions .Route .MEDSUPPLY Qty: 1 0RF Rx Instructions: Rx: Resmed AirMini Travel CPAP and supplies; 11 cm H2O metoprolol succinate 50 mg tablet extended release 24 hr PO aspirin 81 mg Tablet,Chewable 81 mg PO DAILY lisinopril 5 mg Tablet 5 mg PO QAM Qty: 30 3RF atorvastatin 80 mg tablet 80 mg PO DAILY Qty: 30 3RF Follow-up/Referrals: Juani Jeff DO [Primary Care Provider, Family Practice]
[2025-01-08] MEDS: TETANUS,DIPHTHERIA,AC PERTUSSIS ADULT (0.5 ML) BOOSTRIX IM (10:50)
== END 2025-01-08 10:52 | disposition home or self-care (01) ==
PROVIDERS: Emergency Provider Nurse Practitioner; PCP Family Medicine
DX: S81.811A Laceration without foreign body, right lower leg, initial encounter (principal); L08.9 Local infection of the skin and subcutaneous tissue, unspecified; W22.8XXA Striking against or struck by other objects, initial encounter; Z23 Encounter for immunization; I25.10 Atherosclerotic heart disease of native coronary artery without angina pectoris; I10 Essential (primary) hypertension; E78.5 Hyperlipidemia, unspecified; G47.33 Obstructive sleep apnea (adult) (pediatric); C91.10 Chronic lymphocytic leukemia of B-cell type not having achieved remission; I25.2 Old myocardial infarction; Z95.5 Presence of coronary angioplasty implant and graft; Z79.82 Long term (current) use of aspirin
CPT/HCPCS: 90471; 90715; 99213; G0463

== ENCOUNTER 2025-01-15 10:55 | Emergency (ER) | payer MEDICARE, BC, SELFPAY ==
--- NOTE | ~2025-01-15 | XR_ITS ---
EXAMINATION: XR tibia fibula RT 2V DATE: 01/15/2025 11:34 INDICATION: Right donaldson pain with wound after being scratched 10 days prior TECHNIQUE: Anteroposterior and lateral views of the right tibia and fibula were obtained. COMPARISON: None. FINDINGS: Alignment is normal. No fracture. Joint spaces are normal. Small plantar calcaneal spur. No cortical erosions or periosteal reaction. Soft tissues are unremarkable with no soft tissue gas or radiopaque foreign bodies. No evident right knee or ankle joint effusion. Atherosclerotic calcifications along the arteries of the right calf. IMPRESSION: 1. No acute osseous abnormality, soft tissue gas or radiopaque foreign bodies. Reviewed, dictated and finalized at location A. S ESTIMATOR
--- NOTE | 2025-01-15 11:00 | ED_ITS ---
HPI - Skin/Abscess/Foreign Bdy General Chief complaint: Extremity Injury, Lower Stated complaint: Infection R Harris Time Seen by Provider: 01/15/25 10:55 Source: patient Mode of arrival: ambulatory Limitations: no limitations History of Present Illness HPI narrative: patient is a 69-year-old male who presents with concern for infection on right harris. Patient seen here last week for same wound(corn stalk cut leg 10 days ago now)and was placed on doxycycline. Patient finish that this morning but is still concerned infection has not resolved. Patient states area is still slightly swollen and his harris is painful. Patient states his PCP is on vacation until next Wednesday. Denies any fever, chills, nausea, vomiting, diarrhea. Related Data Home Medications ?Medication ?Instructions ?Recorded ?Confirmed ?Last Taken ?Type aspirin 81 mg chewable tablet 81 mg PO DAILY 06/07/19 01/15/25 08/31/24 08:00 History 81 mg metoprolol succinate 50 mg mg PO 11/15/24 11/15/24 Unk nown History tablet,extended release 24 hr Allergies Allergy/AdvReac Type Severity Reaction Status Date / Time No Known Allergies Allergy Verified 01/15/25 11:17 Review of Systems 2 Review of Systems: All systems reviewed & are unremarkable except as noted in HPI and below Constitutional: Constitutional: Denies body ache(s), Denies chills, Denies fatigue, Denies fever(s), Denies headache(s), Denies malaise and Denies weakness Eyes: Eyes: Denies blurry vision, Denies irritation and Denies loss of vision ENT: Denies otalgia, Denies headache(s), Denies nasal discharge, Denies sinus pain and Denies sore throat Cardiovascular: Cardiovascular: Denies chest pain, Denies irregular heart rhythm and Denies dyspnea Respiratory: Respiratory: Denies dyspnea Gastrointestinal: Gastrointestinal: Denies abdominal pain, Denies melena, Denies hematochezia, Denies diarrhea, Denies nausea and Denies vomiting Musculoskeletal: Musculoskeletal: Denies back pain, Denies myalgias and Denies arthralgias Integumentary/Breasts: Skin/Breast: Denies pruritus, Denies rash, Reports skin pain and Reports wounds Neurologic: Denies headache(s), Denies loss of vision and Denies weakness Psychiatric: Psychiatric: Reports no additional psychiatric complaints Endocrine: Endocrine: Denies fatigue PMF Past Medical History Medical History Obstructive sleep apnea on CPAP Chronic lymphocytic leukemia Dyslipidemia ST elevation myocardial infarction (STEMI) of inferior wall (05/2019) Coronary artery disease Carotid arterial disease Hypertension Surgical History Surgical History History of coronary artery stent placement (05/2019) History of cardiac catheterization History of right-sided carotid endarterectomy Family History Family History Unknown No problems noted. Father Lung cancer Mother Bladder cancer Social History Social History Social History: Surrogate medical decision maker: Viki Artis, spouse. Code status: Full code. Smoking status: Never smoker Alcohol intake: current Drinks per week: 21 Substance use: current Substance use type: marijuana Other substance usage details: occasional Do You Feel Safe in your Home?: Yes Lack of Transportation: No Lack of Food: Never True Current Housing: I Have Housing Concerned About Future Housing: No Difficulty Paying Gas/Electric Bills: No Difficulty Paying for Meds: No Currently Unemployed: No Education: Bachelor's Degree Difficulty w/ Childcare or Family Care: No Spiritual care concerns: No Agree to blood products: Yes Comments At time of signature, agree with nursing past medical, surgical, social and family history. There is no relevant family history pertinent to the presenting complaint. Exam 2 Const: General: cooperative, healthy appearing, comfortable, no acute distress and well nourished Nutritional Appearance: well nourished O rientation/consciousness: patient oriented x3 Limitations: no limitations HENMT: Head: normal to inspection, normocephalic and atraumatic Ears: h earing grossly normal bilaterally and external ears normal Face/Nose/Sinus: N ormal external nose present, normal facial exam and face symmetric Face and sinus: normal facial exam and face symmetric Mouth: Yes lip normal Eyes: General: appearance normal, both eyes and all related structures A lignment and Position: alignment normal and position normal Periorbital: p eriorbital findings normal Eyelids: eyelids normal Pupils: Equal, round and reactive pupils present EOM: EOMs intact bilaterally Neck: Neck: normal visual inspection, full ROM and supple Chest: Chest palpation & inspection: normal inspection of the chest Resp: Effort & Inspection: normal respiratory effort and able to speak in complete sentences Auscultation: clear to auscultation bilaterally Cardio: Rate: regular rate Rhythm: regular rhythm Heart sounds: S1 normal heart sound present and S2 normal heart sound present GI: Inspection: normal to inspection Skin: General skin exam: normal color and no rashes or lesions noted Neuro: General: patient oriented x3 and moves all extremities Cranial nerves: Yes Equal, round and reactive pupils present Speech: normal speech Gait exam (Neuro): Normal gait present Extrem: General: normal to inspection, full ROM and no edema Ankle/foot/toe images: 1. healing laceration with scab present. Mild swelling surrounding wound with mild erythema and warmth Psych: Appearance: grossly normal and well kempt Mental Status: mental status grossly normal Speech and movement: Normal speech and movement present Affect: normal affect Attitude: cooperative Thought process: Normal thought process present Course Course Emergency Course: Patient is aware of diagnosis, understands and agrees to treatment plan. Anticipatory guidance given. Patient agrees to follow-up as directed and is aware of reasons to seek care at the emergency department. Portions of this record may have been created with voice recognition software Level of Care: Express Care Visit Vital Signs Vital signs: Reviewed MDM - Skin/Abscess/Foreign Bdy MDM Narrative Medical decision making narrative: will treat with round of antibiotics as there are still signs mild infection. x-ray shows no signs of osteomyelitis Pt well hydrated appearing, in no respiratory distress, hemodynamically stable. Recommend supportive care. The patient is stable at time of discharge the clinical impression was discussed and the patient was given the opportunity to ask questions, which were addressed as completely as possible given the information available at present. Anticipatory guidance and return to care precautions were discussed and the importance of primary care follow-up was stressed and encouraged. The patient voiced understanding of the plan, indications to return, and the need for follow-up. Exam findings show no acute concerns or changes Patient is appropriate for outpatient treatment and follow-up. Differential Diagnosis Differential diagnosis: Likely abscess of skin or subcutaneous tissue, cellulitis and other ( less likely osteomyelitis) Medical Records Attestation: I reviewed the patient's medical records. Imaging Data Radiologist's impression: EXAMINATION: XR tibia fibula RT 2V DATE: 01/15/2025 11:34 INDICATION: Right harris pain with wound after being scratched 10 days prior TECHNIQUE: Anteroposterior and lateral views of the right tibia and fibula were obtained. COMPARISON: None. FINDINGS: Alignment is normal. No fracture. Joint spaces are normal. Small plantar calcaneal spur. No cortical erosions or periosteal reaction. Soft tissues are unremarkable with no soft tissue gas or radiopaque foreign bodies. No evident right knee or ankle joint effusion. Atherosclerotic calcifications along the arteries of the right calf. IMPRESSION: 1. No acute osseous abnormality, soft tissue gas or radiopaque foreign bodies. Reviewed, dictated and finalized at location A. [facility] Discharge Plan Discharge Clinical Impression: Cellulitis Qualifiers: Site of cellulitis: extremity Site of cellulitis of extremity: lower extremity Laterality: right Qualified Code(s): L03.115 - Cellulitis of right lower limb Patient Disposition: Home Condition: Stable Instructions: Cellulitis (ED) Additional Instructions: Please follow up with your Primary Care Doctor within 48-72 hours - call for an appointment. Rest and elevate affected area; apply moist heat 3-4 times daily for 10-15 minutes. Clean with soap and water only; Avoid using alcohol and peroxide. Elevate the affected area if possible Please take Antibiotics as directed. For pain, you may take: Tylenol 650-1000mg by mouth every 4-6 hours. Do not exceed 4000mg in 24 hours. Advil (Ibuprofen) 600 mg by mouth every 6 hours. Do not exceed 2400mg in 24 hours. 8 AM: Tylenol 11 AM: Ibuprofen 2 PM: Tylenol 5 PM: Ibuprofen 8 PM: Tylenol 11 PM: Ibuprofen 2 AM: Tylenol 5 AM: Ibuprofen If you experience any worsening redness, swelling, streaking (red lines), fever or chills please go to the ER Patient Language: [place] Prescriptions: New clindamycin HCl 300 mg capsule 300 mg PO Q8H 7 Days Qty: 21 0RF No Action nitroglycerin 0.4 mg tablet, sublingual 0.4 mg SUBLINGUAL DIRECTED PRN (Reason: chest pain) Qty: 25 3RF Patient Comments: has not needed to take it but has it Rx Instructions: One tablet sublingual Q 5 minutes x3 doses p.r.n. chest pain If no relief call 911 (DME) CPAP Equipment See Rx Instructions .Route .MEDSUPPLY Qty: 1 0RF Patient Comments: does not wish to use while here Rx Instructions: Rx: Resmed AirSense 11 CPAP at 11 cm H2O. CPAP filters/tubing. Needs mask re- fit. Dx: G47.33 DME: [place] [facility] Length of need : 99+ months *Please link me to patient's CPAP machine through [facility]* (DME) Travel CPAP Rx See Rx Instructions .Route .MEDSUPPLY Qty: 1 0RF Rx Instructions: Rx: Resmed AirMini Travel CPAP and supplies; 11 cm H2O metoprolol succinate 50 mg tablet extended release 24 hr PO aspirin 81 mg Tablet,Chewable 81 mg PO DAILY lisinopril 5 mg Tablet 5 mg PO QAM Qty: 30 3RF atorvastatin 80 mg tablet 80 mg PO DAILY Qty: 30 3RF Follow-up/Referrals: Juani Jeff DO [Primary Care Provider, Family Practice] - 3 Days
[2025-01-15 11:05] VITALS: BP 135/98; PULSE 75; RESP 16; TEMP 36.4; O2SAT 100
== END 2025-01-15 12:34 | disposition home or self-care (01) ==
PROVIDERS: Emergency Provider Nurse Practitioner Family; PCP Family Medicine
DX: L03.115 Cellulitis of right lower limb (principal); S81.811D Laceration without foreign body, right lower leg, subsequent encounter; W45.8XXD Other foreign body or object entering through skin, subsequent encounter; C91.10 Chronic lymphocytic leukemia of B-cell type not having achieved remission; G47.33 Obstructive sleep apnea (adult) (pediatric); E78.5 Hyperlipidemia, unspecified; I25.10 Atherosclerotic heart disease of native coronary artery without angina pectoris; I10 Essential (primary) hypertension; I25.2 Old myocardial infarction; Z95.5 Presence of coronary angioplasty implant and graft
CPT/HCPCS: 73590; 99213; G0463